=== PATIENT | male | born 1965 | race Caucasian/White ===

== ENCOUNTER 2020-03-30 08:20 | Outpatient (REF) | payer OTHER, SELFPAY ==
[2020-03-30 08:39] LABS: COVID-19 Test Negative (Negative)
== END 2020-03-30 08:21 | disposition home or self-care (01) ==
LOC: HO.LAB 08:20
PROVIDERS: Visit Provider Internal Medicine
DX: Z20.828 Contact with and (suspected) exposure to other viral communicable diseases (principal)
CPT/HCPCS: 87635; C9803

== ENCOUNTER → 2021-08-24 06:35 | Day surgery (SDC) | payer OTHER, SELFPAY ==
[2021-08-20 11:12] VITALS: BMI 40.8
--- NOTE | 2021-08-23 10:18 | HO.ANESPROP2 ---
HPI - Anesthesia Eval Consult details Narrative: 08/24/21 Pt found to be in rapid afib. Transferred to ED 55yo M for Colonoscopy [facility] Active Problems Active Problems: All Active Problems (Updated 08/20/21 @ 11:15 by Nicol Obrien RN) Hypertension (Acute) Desensitization to allergy shot (Acute) Bilateral carpal tunnel syndrome (Acute) Impaired glucose tolerance (Acute) TSH elevation (Acute) Anxiety (Acute) Colon cancer screening (Acute) Generalized anxiety disorder (Acute) Shoulder pain, bilateral (Acute) Trigger finger of all digits of left hand (Acute) Palpitations (Acute) SOB (shortness of breath) on exertion (Acute) Carpal tunnel syndrome on both sides (Acute) Obesity (BMI 30-39.9) (Acute) Hypertriglyceridemia (Acute) Past Medical History Medical History Acute meniscal tear of left knee Allergic rhinitis BPH (benign prostatic hyperplasia) COVID-19 vaccine series completed COVID-19 virus infection Hypertriglyceridemia Insomnia Obesity (BMI 30-39.9) Rosacea Family History Family History Father Diabetes CVA (cerebral vascular accident) Mother Hypertension Brother No problems noted. Brother No problems noted. Sister No problems noted. Sister No problems noted. Daughter No problems noted. Daughter No problems noted. Surgical History Surgical History H/O thumb surgery H/O vasectomy History of facial surgery Hx of knee surgery Social History Social History Household Members: Spouse and Family Housing: House Alcohol intake: current Alcohol intake frequency: does not drink Patient Tobacco Use Status: Never used Tobacco e-Cigarette/Vaping Use: Never Used Second Hand Smoke Exposure: No Advance Directives Date on File: 08/24/21 service: No Current occupational status: employed Meds Allergies Allergy/AdvReac Type Severity Reaction Status Date / Time No Known Allergies Allergy Verified 08/14/21 10:41 Home Medications Medication Instructions Recorded Confirmed Last Taken Type cetirizine 10 mg tablet 10 mg PO DAILY 08/14/21 08/24/21 08/23/21 History fluticasone propionate 50 2 spray INTRANASAL DAILY 08/14/21 08/24/21 08/23/21 History mcg/actuation nasal spray,suspension multivitamin 1 tab PO DAILY 08/24/21 08/24/21 08/23/21 History tamsulosin 0.4 mg capsule 0.4 mg PO DAILY@1730 08/24/21 08/24/21 08/23/21 History Exam Exam Date and Time: August 23, 2021 1018 Height,Weight and Vital Signs: Height 5 ft 8 in Weight 122.016 kg Assessment and Plan Assessment Anesthesia Assessment: Chart Reviewed
[2021-08-24 06:42] VITALS: BP 138/91; PULSE 167; RESP 18; TEMP 35.9; O2SAT 97
--- NOTE | 2021-08-24 06:53 | ECG_ITS ---
Test Reason : tachy Blood Pressure : / mmHG Vent. Rate : 151 BPM Atrial Rate : 000 BPM P-R Int : 000 ms QRS Dur : 092 ms QT Int : 298 ms P-R-T Axes : 000 -34 042 degrees QTc Int : 472 ms Atrial fibrillation with rapid ventricular response Left axis deviation Abnormal ECG When compared with ECG of 02-JUL-2006 14:54, Atrial fibrillation has replaced Sinus rhythm Vent. rate has increased BY 74 BPM Referred By: Haley Jasmine Electronically Signed By:AMANDA KATZ
--- NOTE | 2021-08-24 06:54 | PC.NURSE ---
rapid heart rate 144-164, anesthesia aware, no sx or symptoms, no chest pain or SOB
[2021-08-24] MEDS: Lactated Ringers 1,000 ML 100 ML IVCONT (07:01)
--- NOTE | 2021-08-24 07:21 | PC.NURSE ---
pt being transferred to ed ekg showed rapid afib pt aware of change careplan denies c/p sob dr arreaga aware dr trammell speaking to ed physician
--- NOTE | 2021-08-24 07:45 | PC.NURSE ---
aware of patient being transferred to ed pt remains asymptomatic report to giulia rich
== END ==
PROVIDERS: PCP Internal Medicine; Visit Provider Internal Medicine
DX: Z12.11 Encounter for screening for malignant neoplasm of colon (principal); R94.31 Abnormal electrocardiogram [ECG] [EKG]; I48.91 Unspecified atrial fibrillation; Z53.09 Procedure and treatment not carried out because of other contraindication
CPT/HCPCS: 93005

== ENCOUNTER 2021-08-24 07:35 | Inpatient (IN) | payer OTHER, SELFPAY ==
[2021-08-24] VITALS (9 sets, daily range): BP systolic 98–141; BP diastolic 60–81; PULSE 74–149; RESP 10–20; TEMP 36.1–36.8; O2SAT 95–97; BMI 39.1
--- NOTE | ~2021-08-24 | XR_ITS ---
EXAMINATION: XR CHEST CLINICAL INFORMATION: Atrial fibrillation. Rule out CHF. COMPARISON: Previous chest x-ray July 2009 TECHNIQUE: Frontal view of the chest was obtained. FINDINGS: No significant abnormality is noted involving the heart, lungs, mediastinum, bony thorax or soft tissues. XR/XR chest 1V IMPRESSION: Unremarkable examination.
--- NOTE | 2021-08-24 07:58 | ED.ARRPALP ---
HPI - Arrhythmia/Palpitations General Chief Complaint: Arrhythmia/Palpitations Stated Complaint: A FIB Time Seen by Provider: 08/24/21 07:58 Source: patient Mode of arrival: ambulatory Limitations: no limitations History of Present Illness HPI narrative: patient was going for colonoscopy and found to be in afib, rate of 150. According to anesthesia patient had atrial fibrillation when he had knee surgery [address] on medication. patient is asymptomatic. Duration: constant Severity: moderate Arrhythmia history: atrial fibrillation Associated symptoms: denies other symptoms Related Data Home Medications Medication Instructions Recorded Confirmed cetirizine 10 mg tablet 10 mg PO DAILY 08/14/21 09/11/21 fluticasone propionate 50 2 spray INTRANASAL DAILY 08/14/21 09/11/21 mcg/actuation nasal spray,suspension multivitamin 1 tab PO DAILY 08/24/21 09/11/21 tamsulosin 0.4 mg capsule 0.4 mg PO DAILY@1730 08/24/21 09/11/21 Previous Rx's Medication Instructions Recorded sertraline 50 mg tablet 50 mg PO DAILY #90 tab 08/30/21 apixaban 5 mg tablet (Eliquis) 5 mg PO BID #60 tab 08/31/21 diltiazem HCl 120 mg 120 mg PO DAILY #90 cap 08/31/21 capsule,extended release 24 hr (Cardizem CD) metoprolol succinate 50 mg 75 mg PO DAILY #90 tab 08/31/21 tablet,extended release 24 hr Allergies Allergy/AdvReac Type Severity Reaction Status Date / Time No Known Allergies Allergy Verified 09/11/21 11:26 Review of Systems Constitutional: Constitutional: Reports no additional constitutional complaints Eyes: Eyes: Reports no additional eye complaints ENT: Denies dizziness Cardiovascular: Cardiovascular: Reports no additional cardiovascular complaints Respiratory: Respiratory: Reports as per HPI Gastrointestinal: Gastrointestinal: Reports no additional gastrointestinal complaints Musculoskeletal: Musculoskeletal: Reports no additional musculoskeletal complaints Integumentary/Breasts: Skin/Breast: Denies rash Neurologic: Reports system reviewed and no additional complaints, except as documented, Denies dizziness and Denies Sensory deficit (Neuro) Psychiatric: Psychiatric: Denies anxiety PMFSH Past Medical History Medical History Acute meniscal tear of left knee Allergic rhinitis BPH (benign prostatic hyperplasia) COVID-19 vaccine series completed COVID-19 virus infection Essential hypertension Hypertriglyceridemia Insomnia Obesity (BMI 30-39.9) Rosacea Surgical History H/O thumb surgery H/O vasectomy History of facial surgery Hx of knee surgery Family History Family History Father Diabetes CVA (cerebral vascular accident) Mother Hypertension Brother No problems noted. Brother No problems noted. Sister No problems noted. Sister No problems noted. Daughter No problems noted. Daughter No problems noted. Social History Social History Household Members: Spouse and Family Housing: House Alcohol intake: current Alcohol intake frequency: does not drink Patient Tobacco Use Status: Never used Tobacco e-Cigarette/Vaping Use: Never Used Second Hand Smoke Exposure: No Advance Directives Date on File: 08/24/21 service: No Current occupational status: employed Cognitive needs: No Hearing needs: No Vision needs: No Physical Exam Vital Signs: Vital Signs: Last Vital Signs Temp 97.6 F 08/25/21 11:19 Pulse 82 08/25/21 11:19 Resp 17 08/25/21 11:19 BP 116/68 08/25/21 11:19 Pulse Ox 95 08/25/21 11:19 BMI result Body Mass Index 39.1 Const: General: healthy appearing Nutritional Appearance: obese Orientation/consciousness: oriented to person and patient oriented x3 Limitations: no limitations HEENT: Head: Yes normal to inspection Ears: external ears normal General nose exam: Normal external nose present Mouth: Normal oral and palatal mucosa present and oropharynx normal Throat: Yes posterior oropharynx normal Eyes: General: appearance normal, both eyes and all related structures Neck: Other: supple Neck: Yes normal visual inspection Chest: Chest palpation & inspection: normal inspection of the chest Resp: Auscultation: clear to auscultation bilaterally Cardio: Other: tachycardia, IRRR Jugular venous distension: no JVD GI: Inspection: Yes normal to inspection Palpation (GI): Soft to palpation, nontender and No hepatosplenomegaly present Auscultation: normal bowel sounds : General: Yes no CVA tenderness Back/Spine/Pelvis: Back: no CVA tenderness Skin: General skin exam: no rashes or lesions noted Neuro: General: oriented to person and patient oriented x3 Cranial nerves: Yes CN's II-XII intact bilaterally Motor exam (neuro): 5/5 motor strength present throughout Sensory Exam: No Sensory deficit (Neuro) Extrem: General: Yes normal to inspection Psych: Appearance: grossly normal Course Reevaluation(s) Reevaluation #1: patient on cardizem Heart rate running at 100 will admit Time: 09:11 MDM - Arrhythmia/Palpitations Lab Data Result diagrams: 08/25/21 06:34 08/25/21 06:34 Labs: Lab Results 08/24/21 08/24/21 08/24/21 Range/Units 08:15 08:15 08:15 WBC 7.0 (4.8-10.8) X10*3/uL RBC 5.26 (4.60-5.80) X10*6/uL Hgb 15.9 (14.0-18.0) g/dl Hct 47.5 (42.0-52.0) % MCV 90.3 (80.0-98.0) fL MCH 30.2 (27.0-33.0) pg MCHC 33.5 (31.0-36.0) g/dl RDW 13.2 (11.0-16.0) % Plt Count 234 (160-400) X10*3/uL MPV 11.3 (9.4-12.4) fL Immature Gran % (Auto) 0.3 (0.0-0.4) % Neut % (Auto) 63.5 (45-73) % Lymph % (Auto) 23.7 (20-40) % Robertson % (Auto) 8.2 (2-11) % Eos % (Auto) 3.7 (0-4) % Baso % (Auto) 0.6 (0-2) % Lymph # (Auto) 1.7 (1.2-4.9) X10*3/uL Robertson # (Auto) 0.6 (0.1-1.2) X10*3/uL Eos # (Auto) 0.3 (0.0-0.4) X10*3/uL Baso # (Auto) 0.0 (0.0-0.2) X10*3/uL Abs Immat Gran (auto) 0.02 (0.00-0.03) X10*3/uL Absolute Neuts (auto) 4.4 (2.0-8.3) x10*3/uL Absolute Nucleated RBC 0.000 (0.0-0.012) X10*3/uL Nucleated RBC % (auto) 0.0 (0.0-0.2) /100WBC PT (9.9-13.0) SEC INR (0.9-1.1) APTT (24.1-38.0) SEC Sodium 137 (135-145) mmol/L Potassium 4.2 (3.3-5.1) mmol/L Chloride 106 (96-108) mmol/L Carbon Dioxide 23 (22-29) mmol/L Anion Gap 12 (12-20) BUN 14 (9-16) mg/dL Creatinine 1.02 (0.5-1.4) mg/dL Estim Creat Clear Calc 99.5 Estimated GFR > 60 Random Glucose 128 H (60-115) mg/dL Calcium 8.9 (8.4-10.2) mg/dL Troponin I High Sens < 3.5 (<3.5-35.0) ng/L B-Natriuretic Peptide 80 (<100) pg/mL TSH 5.60 H (0.32-4.0) uIU/mL Free T4 0.84 (0.71-1.85) ng/dL COVID-19 (DEREK) (Negative) COVID-19 Clin Com 08/24/21 08/24/21 Range/Units 08:15 09:24 WBC (4.8-10.8) X10*3/uL RBC (4.60-5.80) X10*6/uL Hgb (14.0-18.0) g/dl Hct (42.0-52.0) % MCV (80.0-98.0) fL MCH (27.0-33.0) pg MCHC (31.0-36.0) g/dl RDW (11.0-16.0) % Plt Count (160-400) X10*3/uL MPV (9.4-12.4) fL Immature Gran % (Auto) (0.0-0.4) % Neut % (Auto) (45-73) % Lymph % (Auto) (20-40) % Robertson % (Auto) (2-11) % Eos % (Auto) (0-4) % Baso % (Auto) (0-2) % Lymph # (Auto) (1.2-4.9) X10*3/uL Robertson # (Auto) (0.1-1.2) X10*3/uL Eos # (Auto) (0.0-0.4) X10*3/uL Baso # (Auto) (0.0-0.2) X10*3/uL Abs Immat Gran (auto) (0.00-0.03) X10*3/uL Absolute Neuts (auto) (2.0-8.3) x10*3/uL Absolute Nucleated RBC (0.0-0.012) X10*3/uL Nucleated RBC % (auto) (0.0-0.2) /100WBC PT 12.0 (9.9-13.0) SEC INR 1.1 (0.9-1.1) APTT 42.7 H (24.1-38.0) SEC Sodium (135-145) mmol/L Potassium (3.3-5.1) mmol/L Chloride (96-108) mmol/L Carbon Dioxide (22-29) mmol/L Anion Gap (12-20) BUN (9-16) mg/dL Creatinine (0.5-1.4) mg/dL Estim Creat Clear Calc Estimated GFR Random Glucose (60-115) mg/dL Calcium (8.4-10.2) mg/dL Troponin I High Sens (<3.5-35.0) ng/L B-Natriuretic Peptide (<100) pg/mL TSH (0.32-4.0) uIU/mL Free T4 (0.71-1.85) ng/dL COVID-19 (DEREK) Negative (Negative) COVID-19 Clin Com See Note ECG Data Attestation: I personally reviewed and interpreted this ECG as follows: Interpretation: atrial fibrillation, rate of 130, no st or twave changes Critical Care Time Critical Care Time Attestation: I spent 40 minutes of critical care, with interventions, assessments, speaking to patient, consultants, and family. Discharge Plan Discharge Clinical Impression: Atrial fibrillation Patient Disposition: Admitted As Inpatient Interventions: Admission Worksheet (ED) Last Done: 08/24/21 13:27 Discharge Date/Time: 08/24/21 13:28
--- NOTE | 2021-08-24 08:03 | ECG_ITS ---
Test Reason : tachy Blood Pressure : / mmHG Vent. Rate : 132 BPM Atrial Rate : 132 BPM P-R Int : 158 ms QRS Dur : 092 ms QT Int : 310 ms P-R-T Axes : 045 -31 034 degrees QTc Int : 459 ms Sinus tachycardia with Premature supraventricular complexes Left axis deviation Abnormal ECG When compared with ECG of 24-AUG-2021 07:02, No significant changes seen Referred By: Adolfo Donahue Electronically Signed By:AMANDA KATZ
[2021-08-24] MEDS: dilTIAZem HCL 50 MG/10 ML VIAL 10 MG IVPUSH (08:16)
[2021-08-24] MEDS: dilTIAZem HCL 125 MG in 0.9 % Sodium Chloride 100 ML 10 MG IVCONT (08:20)
[2021-08-24 08:21] LABS: MANUAL DIFF FLAG NO
[2021-08-24 08:26] LABS: Basophils Percent Auto 0.6 % (0-2); Eosinophils Absolute Auto 0.3 X10*3/uL (0.0-0.4); Eosinophils Percent Auto 3.7 % (0-4); Hematocrit 47.5 % (42.0-52.0); Hemoglobin 15.9 g/dl (14.0-18.0); Imm Gran Abs Auto 0.02 X10*3/uL (0.00-0.03); Imm Gran Pct Auto 0.3 % (0.0-0.4); Lymphocytes Absolute Auto 1.7 X10*3/uL (1.2-4.9); Lymphocytes Percent Auto 23.7 % (20-40); Mean Corpuscular HGB Conc 33.5 g/dl (31.0-36.0); Mean Corpuscular Hemoglobin 30.2 pg (27.0-33.0); Mean Corpuscular Volume 90.3 fL (80.0-98.0); Mean Platelet Volume 11.3 fL (9.4-12.4); Monocytes Absolute Auto 0.6 X10*3/uL (0.1-1.2); Monocytes Percent Auto 8.2 % (2-11); Neutrophils Absolute Auto 4.4 x10*3/uL (2.0-8.3); Neutrophils Percent Auto 63.5 % (45-73); Platelet Count 234 X10*3/uL (160-400); Red Blood Count 5.26 X10*6/uL (4.60-5.80); Red Cell Distribution Width 13.2 % (11.0-16.0)
[2021-08-24 08:29] LABS: INTERNATIONAL NORM RATIO 1.1 (0.9-1.1)
[2021-08-24 08:31] LABS: Partial Thromboplastin Time 42.7 SEC (24.1-38.0)
[2021-08-24] MEDS: Enoxaparin Sodium 120 MG/0.8 ML SYRINGE 115 MG SUBCUT (08:36)
[2021-08-24 08:37] LABS: Anion Gap 12 (12-20); Blood Urea Nitrogen 14 mg/dL (9-16); Calcium 8.9 mg/dL (8.4-10.2); Carbon Dioxide 23 mmol/L (22-29); Chloride 106 mmol/L (96-108); Creatinine Clr Calc Pharmacy 99.5; Estimated Glomerular Filt Rate > 60; Glucose Random 128 mg/dL (60-115); Potassium 4.2 mmol/L (3.3-5.1); Sodium 137 mmol/L (135-145)
[2021-08-24 08:43] LABS: Troponin-I High Sensitivity < 3.5 ng/L (<3.5-35.0)
--- NOTE | 2021-08-24 09:41 | PHA.MEDREC ---
me rec complete, no issues Pharmacy Consult ? Medication Reconciliation Pharmacy has completed the medication reconciliation.
[2021-08-24 09:51] LABS: COVID-19 Test Negative (Negative); IDNOW Serial# 16C4AD1C
--- NOTE | 2021-08-24 10:00 | CA_ITS ---
Transthoracic Echocardiogram Patient (Last, First, Middle): Rich Carias F Gender: Male Date of : 1965 Age: 55 Procedure Date: 08/24/2021 Procedure Type: Transthoracic Echocardiogram Location: ER Height: 170.18 cm Weight: 113.4 kg BSA: 2.22 m2 Heart Rate: bpm BP: 102 / 71 mmHg Mud Worker: DEYSI Referring MD: Spencer Key MD Symptoms: a. fib rvr Study Quality: Fair ECG Rhythm: Atrial Fibrillation Conclusions: - The left ventricular systolic function is normal. The visually estimated ejection fraction is between 55-60%. - No obvious valvular pathology seen on this study. Findings Left Ventricle Normal left ventricular cavity size. There is mildly increased left ventricular wall thickness. The left ventricular systolic function is normal. The visually estimated ejection fraction is between 55-60%. There is no evidence of regional wall motion abnormalities. Diastolic function is indeterminate on the basis of available data. Right Ventricle Normal right ventricular cavity size and systolic function. Atria Both atria are normal in size. Aortic Valve There is a normal trileaflet aortic valve. There is no aortic valve stenosis. There is no aortic valve regurgitation. Mitral Valve The mitral valve appears normal. There is trace mitral valve regurgitation. There is no mitral valve stenosis. Pulmonic Valve The pulmonic valve is likely normal. Tricuspid Valve There is trace tricuspid valve regurgitation. The pulmonary artery systolic pressure is normal. Great Vessels The sinuses of valsalva, sino tubular ridge, and asc aorta are normal in size. Venous The inferior vena cava is normal in size and collapses greater than 50% with inspiration. Pericardium/Pleural There is a trivial pericardial effusion. Prior Study Comparison No prior study available for comparison. Recommendations, Care & Conclusions No obvious valvular pathology seen on this study. Measurements 2D Linear Measurements IVSd: 1.28 0.6-0.9/0.6-1.0 cm LVIDd: 4.17 3.9-5.3/4.2-5.9 cm LVIDd Index: 1.88 2.4-3.2/2.2-3.1 cm/m2 LVIDs: 2.90 2.0-3.6 cm LVPWd: 1.23 0.7-1.1 cm LA Diam: 3.50 2.7-3.8/3.0-4.0 cm LAIDs Index: 1.58 1.5-2.3 cm/m2 LV Mass: 234.59 67-162/88-224 g LV Mass Index: 105.67 43-95/49-115 g/m2 LVOT Diam: 2.00 3.0+(-)1.3 cm 2D Systolic Function EF 4C: 58.00 >55% EF 2C: 42.70 >55% EF BiP: 46.90 >55% Aortic Valve AoV Pk Malcom: 1.43 AoV Mn Malcom: 1.04 AoV VTI: 0.25 AoV Pk Grad: 8.00 Aov Mn Grad: 5.00 DEDRICK Cont.VTI: 1.89 LVOT LVOT Pk Malcom: 0.94 LVOT Mn Malcom: 0.60 LVOT VTI: 0.15 LVOT Pk Grad: 4.00 LVOT Mn Grad: 2.00 LVOT Diam: 2.00 LVOT Area: 3.14 Right Ventricle TAPSE (mm): 18.40 Tricuspid Valve TR Pk Malcom: 1.56 TR Pk Grad: 10.00 RA Press: 3.00 RVSP: 13.00 Great Vessels Aorta Sinus of Valsalva: 2.00 2.0-3.[address] Ridge: 3.04 1.7-3.4 cm Ao Asc: 3.20 2.1-3.4 cm Updated in Other Vendor System with Status of Final Mynor Murray MD electronically signed on 08/24/2021 3:22:29 PM with status of Final
--- NOTE | 2021-08-24 10:30 | PM.IMHP ---
History of Present Illness Date of Service: 08/24/21 Chief Complaint: A. 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 He presented today to short stay surgery for a scheduled screening colonoscopy where he was found to be in rapid a. fib with rates higher than 150. He was subsequently transferred to the ED for further evaluation. The patient himself denies any chest pain, sob, palpitations currently. Denies any dizziness or lightheadedness. Upon further questioning, he does endorse that he has felt palpitation and shortness of breath when exerting himself more recently, but this improves after resting. In regards to his A. Fib history -- he reports that he had a brief episode of this during his knee replacement about 2 years ago. He reports they proceeded with the surgery at that time and he has not had any issues with the a. fib since. In the ED, the patient was noted to be in A. Fib with rates 120-150s. An IV cardizem push was given without much change to his HR and he has been placed on a cardizem drip and admission is requested. He is also given a treatment dose of lovenox x 1. COVID vaccination status: 3 doses of Moderna Review of Systems Review of Systems: negative except HPI [facility] Medical History Acute meniscal tear of left knee Allergic rhinitis BPH (benign prostatic hyperplasia) COVID-19 vaccine series completed COVID-19 virus infection Hypertriglyceridemia Insomnia Obesity (BMI 30-39.9) Rosacea Family History Father Diabetes CVA (cerebral vascular accident) Mother Hypertension Brother No problems noted. Brother No problems noted. Sister No problems noted. Sister No problems noted. Daughter No problems noted. Daughter No problems noted. Surgical History H/O thumb surgery H/O vasectomy History of facial surgery Hx of knee surgery Social History Housing: House Alcohol intake: current Alcohol intake frequency: does not drink Patient Tobacco Use Status: Never used Tobacco e-Cigarette/Vaping Use: Never Used Second Hand Smoke Exposure: No Use of substances other than those prescribed or required for medical reasons: No Advance Directives: Yes Advance Directives Information Provided: Yes Advance Directives on File: No service: No Current occupational status: employed Meds Allergies Allergy/AdvReac Type Severity Reaction Status Date / Time No Known Allergies Allergy Verified 08/14/21 10:41 Active Medications: Current Medications Acetaminophen (Acetaminophen 325 Mg Tablet) 650 mg PO Q6H PRN PRN Reason: Pain, Mild (Pain Scale 1-3) Diltiazem HCl 125 mg/ Sodium (Chloride) 125 mls @ 0 mls/hr IVCONT .Q0M [facility]; Protocol Last Admin: 08/24/21 08:20 Dose: 10 mg/hr, 10 mls/hr Documented by: Ondansetron HCl (Ondansetron Hcl 4 Mg/2 Ml Vial) 4 mg IVPUSH Q8H PRN PRN Reason: Nausea and Vomiting Pharmacy Consult (Consult Rx Perform Med Rec) 1 each MISCELLANE ONCE PRN PRN Reason: Consult order Sodium Chloride (0.9 % Sodium Chloride Flush 3 Ml Syringe) [facility] Medications Medication Instructions Recorded Confirmed Last Taken Type cetirizine 10 mg tablet 10 mg PO DAILY 08/14/21 08/24/21 08/23/21 History fluticasone propionate 50 2 spray INTRANASAL DAILY 08/14/21 08/24/21 08/23/21 History mcg/actuation nasal spray,suspension multivitamin 1 tab PO DAILY 08/24/21 08/24/21 08/23/21 History tamsulosin 0.4 mg capsule 0.4 mg PO DAILY@1730 08/24/21 08/24/21 08/23/21 History Physical Exam Vital Signs and Narrative: Vital Signs: Last Vital Signs Temp 98.2 F 08/24/21 07:56 Pulse 85 08/24/21 09:29 Resp 16 08/24/21 09:29 BP 98/60 08/24/21 09:29 Pulse Ox 96 08/24/21 09:29 BMI result Body Mass Index 39.1 Const: Other: Constitutional - Awake and Alert, No apparent distress Eyes - PERRLA, EOMI Cardiovascular - IRR, rates 100s at rest on cardizem gtt, but increases to 140s/150s with minimal exertion; no JVD/LE Edema appreciated Respiratory - Normal lung expansion, Normal respiratory effort, No respiratory distress, CTA bilaterally Gastrointestinal - NT / ND; +BS; No rebound or guarding - No CVA tenderness Extremities - no calf tenderness bilaterally, no swelling Musculoskeletal - Normal inspection, normal ROM Skin - Warm/Dry Neurological - Alert & oriented x3, No focal deficit Psychological - Appropriate affect Results Labs CBC and Chem 7: 08/24/21 08:15 08/24/21 08:15 Labs: Laboratory Results - last 24 hr 08/24/21 08/24/21 08/24/21 08:15 08:15 08:15 MCV 90.3 MCH 30.2 MCHC 33.5 RDW 13.2 Plt Count 234 MPV 11.3 Immature Gran % (Auto) 0.3 Neut % (Auto) 63.5 Lymph % (Auto) 23.7 Sandoval % (Auto) 8.2 Eos % (Auto) 3.7 Baso % (Auto) 0.6 Lymph # (Auto) 1.7 Sandoval # (Auto) 0.6 Eos # (Auto) 0.3 Baso # (Auto) 0.0 Abs Immat Gran (auto) 0.02 Absolute Neuts (auto) 4.4 Absolute Nucleated RBC 0.000 Nucleated RBC % (auto) 0.0 PT INR APTT Anion Gap 12 Estim Creat Clear Calc 99.5 Estimated GFR > 60 Random Glucose 128 H Calcium 8.9 Troponin I High Sens < 3.5 COVID-19 ([facility]) COVID-19 Clin Com 08/24/21 08/24/21 08:15 09:24 MCV MCH MCHC RDW Plt Count MPV Immature Gran % (Auto) Neut % (Auto) Lymph % (Auto) Sandoval % (Auto) Eos % (Auto) Baso % (Auto) Lymph # (Auto) Sandoval # (Auto) Eos # (Auto) Baso # (Auto) Abs Immat Gran (auto) Absolute Neuts (auto) Absolute Nucleated RBC Nucleated RBC % (auto) PT 12.0 INR 1.1 APTT 42.7 H Anion Gap Estim Creat Clear Calc Estimated GFR Random Glucose Calcium Troponin I High Sens COVID-19 (DEREK) Negative COVID-19 Clin Com See Note Assessment and Plan (1) Atrial fibrillation with RVR: Status: Acute Plan This is a 55 yo M with a PMH of HTN, Obesity, Allergic Rhinits who has a previous, short-lived episode of A. fib about 2 years ago, who presented to the hospital today for a scheduled screening colonoscopy where he was found to be in rapid a. fib. He has not responded to IV push cardizem and has been placed on cardizem drip. He will be admitted for further work up and treatment. 1. A. Fib with RVR Continue cardizem drip --- his BP is on the down-trend after start cardizem drip. May need to use alternative if his BP becomes too low. Given a dose of Lovenox 1mg/kg in the ED. His CHADSVASC score is a 1 (for HTN). Will await cardiology input re: OAC Check 2d Echo and consult cardiology Clinically does not appear to be in CHF; will check a CXR and BNP Check TSH 2. HTN hold his home metoprolol dose -- cardizem as above 3. Obseity weight loss/diet 4. Mood sertraline 5. BPH flomax Full Code DVT pptx In light of the patients A. Fib with RVR requiring cardizem drip which will require further work up including cardiology consultation, I anticipate a medically necessary inpatient admission spanning at least 2 midnights. He will need treatment and monitoring for this. This cannot be completed in a less acute setting. Quality Stroke Does the patient have a stroke diagnosis?: No VTE Prior VTE?: No VTE Risk Level:: Medical - moderate - high VTE Device Contraindication: Treatment Not Indicated VTE Drug Contraindication: N/A - Med Ordered
[2021-08-24 11:08] LABS: B Type Natriuretic Peptide 80 pg/mL (<100)
[2021-08-24 11:57] LABS: Free T4 (Free Thyroxine) 0.84 ng/dL (0.71-1.85)
[2021-08-24] MEDS: 0.9 % Sodium Chloride Flush 3 ML SYRINGE IVFLUSH ×2 (17:24→19:19)
[2021-08-24] MEDS: Metoprolol Tartrate 25 MG TABLET PO (17:24)
[2021-08-24] MEDS: Tamsulosin HCL 0.4 MG CAPSULE PO (17:24)
[2021-08-25] MEDS: Metoprolol Tartrate 25 MG TABLET PO ×2 (00:27→08:07)
[2021-08-25 03:11] VITALS: BP 123/58; PULSE 67; RESP 16; TEMP 36.6; O2SAT 99
[2021-08-25 07:01] LABS: INTERNATIONAL NORM RATIO 1.1 (0.9-1.1)
[2021-08-25 07:03] LABS: Anion Gap 11 (12-20); Blood Urea Nitrogen 17 mg/dL (9-16); Carbon Dioxide 26 mmol/L (22-29); Chloride 106 mmol/L (96-108); Creatinine Clr Calc Pharmacy 91.4; Estimated Glomerular Filt Rate > 60; Glucose Random 112 mg/dL (60-115); Potassium 4.2 mmol/L (3.3-5.1); Sodium 139 mmol/L (135-145)
[2021-08-25 07:10] LABS: Hematocrit 45.2 % (42.0-52.0); Mean Corpuscular HGB Conc 33.2 g/dl (31.0-36.0); Mean Corpuscular Hemoglobin 30.3 pg (27.0-33.0); Mean Corpuscular Volume 91.3 fL (80.0-98.0); Mean Platelet Volume 11.2 fL (9.4-12.4); Platelet Count 207 X10*3/uL (160-400); Red Blood Count 4.95 X10*6/uL (4.60-5.80); Red Cell Distribution Width 13.2 % (11.0-16.0); White Blood Count 7.3 X10*3/uL (4.8-10.8)
[2021-08-25 08:00] VITALS: BP 136/81; PULSE 82; RESP 18; TEMP 36.3; O2SAT 98
[2021-08-25] MEDS: Multivitamin TABLET 1 TAB PO (08:06)
[2021-08-25] MEDS: Sertraline HCL 50 MG TABLET PO (08:06)
[2021-08-25] MEDS: 0.9 % Sodium Chloride Flush 3 ML SYRINGE IVFLUSH (08:07)
[2021-08-25] MEDS: Loratadine 10 MG TABLET PO (08:07)
--- NOTE | 2021-08-25 10:37 | MHC.CM.PN ---
PT REPORTS HE LIVES AT HOME WITH HIS AND IS INDEPENDENT WITH CARE PT DENIES USING DME OR SERVICES PT CONFIRMS HIS PCP IS SHELBY LAZCANO PT DECLINES TO COMPLETE A HCP PT REPORTS HE IS COVDI-19 VACCINATED DCP, HOME NO SERVICES PT TO ARRANGE TRANSPORT
--- NOTE | 2021-08-25 10:48 | PM.CNCAR ---
History of Present Illness History of Present Illness Date of Service: 08/25/21 Chief complaint: A FIB with RVR Narrative: This is a cardiology consultation regarding atrial fibrillation. He basically came for a colonoscopy and that context was found to have atrial fibrillation with rapid rate. Then he was sent to the ER for evaluation he was admitted. He states that a few days ago, he was trying to climb stairs with some weight in his hands and was feeling short of breath. Otherwise he really does not feel any symptoms at all like angina or palpitations or in fact any cardiac symptoms whatsoever. No known coronary disease myocardial infarction or cardiomyopathy. No history of any atrial fibrillation or other arrhythmias in the past. Today states that he is feeling fine. He has history of hypertension for which she takes Toprol-XL at home. He is obese but not known to have any sleep apnea. He states he does snore however. Review of Systems Review of Systems: Yes all other systems are reviewed and are negative Constitutional: Constitutional: Reports as per HPI Eyes: Eyes: Reports as per HPI ENT: Reports as per HPI Cardiovascular: Cardiovascular: Reports as per HPI, Denies acrocyanosis, Denies cool extremities, Denies chest pain, Denies leg edema, Denies lightheadedness, Denies palpitations and Denies dyspnea Respiratory: Respiratory: Reports as per HPI, Reports no additional respiratory complaints and Denies dyspnea Gastrointestinal: Gastrointestinal: Reports as per HPI and Reports no additional gastrointestinal complaints Genitourinary: Genitourinary: Reports no additional male genitourinary complaints and Reports as per HPI Musculoskeletal: Musculoskeletal: Reports no additional musculoskeletal complaints and Reports as per HPI Integumentary/Breasts: Skin/Breast: Reports system reviewed and no additional complaints, except as docu Neurologic: Reports system reviewed and no additional complaints, except as documented and Reports as per HPI Psychiatric: Psychiatric: Reports no additional psychiatric complaints and Reports as per HPI Endocrine: Endocrine: Reports no additional endocrine complaints, Reports as per HPI and Denies palpitations Hematologic/Lymphatic: Hematologic/Lymphatic: Reports no additional hematologic/lymphatic complaints and Reports as per HPI Allergic/Immunologic: Allergic/Immunologic: Reports no additional allergic/immunologic complaints and Reports as per HPI [facility] Past Medical History Medical History Acute meniscal tear of left knee Allergic rhinitis BPH (benign prostatic hyperplasia) COVID-19 vaccine series completed COVID-19 virus infection Hypertriglyceridemia Insomnia Obesity (BMI 30-39.9) Rosacea Family History Family History Father Diabetes CVA (cerebral vascular accident) Mother Hypertension Brother No problems noted. Brother No problems noted. Sister No problems noted. Sister No problems noted. Daughter No problems noted. Daughter No problems noted. Surgical History Surgical History H/O thumb surgery H/O vasectomy History of facial surgery Hx of knee surgery Social History Social History Household Members: Spouse and Family Housing: House Alcohol intake: current Alcohol intake frequency: does not drink Patient Tobacco Use Status: Never used Tobacco e-Cigarette/Vaping Use: Never Used Second Hand Smoke Exposure: No Advance Directives Date on File: 08/24/21 service: No Current occupational status: employed Meds Allergies Allergy/AdvReac Type Severity Reaction Status Date / Time No Known Allergies Allergy Verified 08/14/21 10:41 Active Medications: Current Medications Acetaminophen (Acetaminophen 325 Mg Tablet) 650 mg PO Q6H PRN PRN Reason: Pain, Mild (Pain Scale 1-3) Diltiazem HCl 125 mg/ Sodium (Chloride) 125 mls @ 0 mls/hr IVCONT .Q0M [facility]; Protocol Last Titration: 08/24/21 16:12 Dose: 0 mg/hr, 0 mls/hr Documented by: Loratadine (Loratadine 10 Mg Tablet) 10 mg PO DAILY [facility] Last Admin: 08/25/21 08:07 Dose: 10 mg Documented by: Metoprolol Tartrate (Metoprolol Tartrate 25 Mg Tablet) 25 mg PO Q8H KWAKU; Protocol Last Admin: 08/25/21 08:07 Dose: 25 mg Documented by: Multivitamins/Vitamin C (Multivitamin Tablet) 1 tab PO DAILY [facility] Last Admin: 08/25/21 08:06 Dose: 1 tab Documented by: Ondansetron HCl (Ondansetron Hcl 4 Mg/2 Ml Vial) 4 mg IVPUSH Q8H PRN PRN Reason: Nausea and Vomiting Pharmacy Consult (Consult Rx Perform Med Rec) 1 each MISCELLANE ONCE PRN PRN Reason: Consult order Sertraline HCl (Sertraline Hcl 50 Mg Tablet) 50 mg PO DAILY [facility] Last Admin: 08/25/21 08:06 Dose: 50 mg Documented by: Sodium Chloride (0.9 % Sodium Chloride Flush 3 Ml Syringe) 3 ml IVFLUSH QSHIFT [facility] Last Admin: 08/25/21 08:07 Dose: 3 ml Documented by: Tamsulosin HCl (Tamsulosin Hcl 0.4 Mg Capsule) 0.4 mg PO DAILY@1730 [facility] Last Admin: 08/24/21 17:24 Dose: 0.4 mg Documented by: Home Medications Medication Instructions Recorded Confirmed Last Taken Type cetirizine 10 mg tablet 10 mg PO DAILY 08/14/21 08/24/21 08/23/21 History fluticasone propionate 50 2 spray INTRANASAL DAILY 08/14/21 08/24/21 08/23/21 History mcg/actuation nasal spray,suspension multivitamin 1 tab PO DAILY 08/24/21 08/24/21 08/23/21 History tamsulosin 0.4 mg capsule 0.4 mg PO DAILY@1730 08/24/21 08/24/21 08/23/21 History Physical Exam Vital Signs: Vital Signs: Last Vital Signs Temp 97.4 F 08/25/21 08:00 Pulse 82 08/25/21 08:00 Resp 18 08/25/21 08:00 BP 136/81 08/25/21 08:00 Pulse Ox 98 08/25/21 08:00 BMI result Body Mass Index 39.1 Const: General: comfortable HEENT: Other: Unremarkable Head: Yes normal to inspection Neck: Neck: Yes normal visual inspection Chest: Chest palpation & inspection: normal inspection of the chest Resp: Auscultation: clear to auscultation bilaterally Cardio: Palpation: normal PMI Heart sounds: S1 normal heart sound present, S2 normal heart sound present, no gallops, no murmurs and no rubs GI: Palpation (GI): Soft to palpation Back/Spine/Pelvis: Other: unremarkable Skin: General skin exam: no rashes or lesions noted Neuro: Cognition (Neuro): normal cognition Extrem: General: Yes normal to inspection Psych: Mental Status: mental status grossly normal Objective Labs and Meds Result diagrams: 08/25/21 06:34 08/25/21 06:34 Lab results: Laboratory Results - last 24 hr 08/24/21 08/24/21 08/25/21 08:15 08:15 06:34 WBC RBC Hgb Hct MCV MCH MCHC RDW Plt Count MPV Absolute Nucleated RBC Nucleated RBC % (auto) PT 12.0 INR 1.1 Sodium Potassium Chloride Carbon Dioxide Anion Gap BUN Creatinine Estim Creat Clear Calc Estimated GFR Random Glucose Calcium B-Natriuretic Peptide 80 TSH 5.60 H Free T4 0.84 08/25/21 08/25/21 06:34 06:34 WBC 7.3 RBC 4.95 Hgb 15.0 Hct 45.2 MCV 91.3 MCH 30.3 MCHC 33.2 RDW 13.2 Plt Count 207 MPV 11.2 Absolute Nucleated RBC 0.000 Nucleated RBC % (auto) 0.0 PT INR Sodium 139 Potassium 4.2 Chloride 106 Carbon Dioxide 26 Anion Gap 11 L BUN 17 H Creatinine 1.11 Estim Creat Clear Calc 91.4 Estimated GFR > 60 Random Glucose 112 Calcium 9.0 B-Natriuretic Peptide TSH Free T4 ECG Interpretation: EKG with atrial fibrillation at 132/Min. Leftward axis. Imaging Radiologist's impression: Impressions Chest X-Ray 08/24/21 10:00 IMPRESSION: Unremarkable examination. Assessment and Plan (1) Atrial fibrillation with RVR: Status: Acute (2) Obesity (BMI 30-39.9): Status: Acute (3) Essential hypertension: Status: Acute Plan Echocardiogram with normal LVEF, 55-60% and otherwise unremarkable. On telemetry, he still in atrial fibrillation with rapid rate somewhere in the 110s to 120s. Sometimes he goes higher. Labs seem fairly unremarkable. High sensitivity troponins are normal. Cardiac BNP is also within range at 80. It seems he was on a Cardizem drip but not anymore. We can start on oral Cardizem. Otherwise, on metoprolol 25 mg every 8 hours. Also start Eliquis 5 mg b.i.d.. As he has no symptoms whatsoever, we can plan on elective cardioversion about 4 weeks time after appropriate anticoagulation. Hopefully with above medications, is rate controlled. Otherwise, main focus should be management of obesity and weight loss. Discussed about this with the patient in detail. He also needs outpatient evaluation for sleep apnea with a home sleep study. We discussed about this as well. Discussed with hospitalist about plan. Yadira Kirk. Procedures Date of Service Date of Service: 08/25/21
--- NOTE | 2021-08-25 11:01 | P.PNIM_ITS ---
Subjective Subjective Date of Service: 08/25/21 Review of Systems Follow up afib rvr no chest pain or sense of palpitations eating well, ambulating in room Physical Exam Vital Signs: Vital Signs: Last Vital Signs Temp 97.4 F 08/25/21 08:00 Pulse 82 08/25/21 08:00 Resp 18 08/25/21 08:00 BP 136/81 08/25/21 08:00 Pulse Ox 98 08/25/21 08:00 BMI result Body Mass Index 39.1 Appearing in no acute distress lung sounds are clear to auscultation heart IRIR positive bowel sounds, abdomen is soft, nontender neuro patient is alert x3, no focal deficits Objective Data Active Medications Acetaminophen (Acetaminophen 325 Mg Tablet) 650 mg PO Q6H PRN PRN Reason: Pain, Mild (Pain Scale 1-3) Apixaban (Apixaban 5 Mg Tablet) 5 mg PO BID [facility] Diltiazem HCl (Diltiazem Hcl Cd 120 Mg Cap.Er.Deg) 120 mg PO DAILY [facility]; Protocol Diltiazem HCl 125 mg/ Sodium (Chloride) 125 mls @ 0 mls/hr IVCONT .Q0M [facility]; Protocol Last Titration: 08/24/21 16:12 Dose: 0 mg/hr, 0 mls/hr Documented by: KATIE Loratadine (Loratadine 10 Mg Tablet) 10 mg PO DAILY [facility] Last Admin: 08/25/21 08:07 Dose: 10 mg Documented by: MULUGETA Metoprolol Tartrate (Metoprolol Tartrate 25 Mg Tablet) 25 mg PO Q8H [facility]; Protocol Last Admin: 08/25/21 08:07 Dose: 25 mg Documented by: MULUGETA Multivitamins/Vitamin C (Multivitamin Tablet) 1 tab PO DAILY [facility] Last Admin: 08/25/21 08:06 Dose: 1 tab Documented by: MULUGETA Ondansetron HCl (Ondansetron Hcl 4 Mg/2 Ml Vial) 4 mg IVPUSH Q8H PRN PRN Reason: Nausea and Vomiting Pharmacy Consult (Consult Rx Perform Med Rec) 1 each MISCELLANE ONCE PRN PRN Reason: Consult order Sertraline HCl (Sertraline Hcl 50 Mg Tablet) 50 mg PO DAILY [facility] Last Admin: 08/25/21 08:06 Dose: 50 mg Documented by: MULUGETA Sodium Chloride (0.9 % Sodium Chloride Flush 3 Ml Syringe) 3 ml IVFLUSH QSHIFT [facility] Last Admin: 08/25/21 08:07 Dose: 3 ml Documented by: MULUGETA Tamsulosin HCl (Tamsulosin Hcl 0.4 Mg Capsule) 0.4 mg PO DAILY@1730 [facility] Last Admin: 08/24/21 17:24 Dose: 0.4 mg Documented by: URSULA Labs CBC & Chem 7: 08/25/21 06:34 08/25/21 06:34 Labs: Laboratory Results - last 24 hr 08/24/21 08/24/21 08/25/21 08:15 08:15 06:34 MCV MCH MCHC RDW Plt Count MPV Absolute Nucleated RBC Nucleated RBC % (auto) PT 12.0 INR 1.1 Anion Gap Estim Creat Clear Calc Estimated GFR Random Glucose Calcium B-Natriuretic Peptide 80 TSH 5.60 H Free T4 0.84 08/25/21 08/25/21 06:34 06:34 MCV 91.3 MCH 30.3 MCHC 33.2 RDW 13.2 Plt Count 207 MPV 11.2 Absolute Nucleated RBC 0.000 Nucleated RBC % (auto) 0.0 PT INR Anion Gap 11 L Estim Creat Clear Calc 91.4 Estimated GFR > 60 Random Glucose 112 Calcium 9.0 B-Natriuretic Peptide TSH Free T4 Assessment and Plan (1) Atrial fibrillation with RVR: Status: Acute Plan This is a 55 yo M with a PMH of HTN, Obesity, Allergic Rhinits who has a previous, short-lived episode of A. fib about 2 years ago, who presented to the hospital today for a scheduled screening colonoscopy where he was found to be in rapid a. fib. He has not responded to IV push cardizem and has been placed on cardizem drip. He will be admitted for further work up and treatment. Acute A. Fib with RVR. New onset Cardizem drip stopped start Eliquis 5mg BID, diltiazem 120mg daily [id number] 1 Echo EF 55-60% TSH 5.60, Free t4 0.84 cardiology following HTN Metoprolol Obesity. BMI 39.2 weight loss/diet Mood sertraline BPH flomax Full Code DVT pptx with debbyquis Attending Requires continued hospitalization for treatment of acute afib rvr and can not be dc until heart rate under better control Quality Stroke Does the patient have a stroke diagnosis?: No VTE Prior VTE?: No VTE Risk Level:: Medical - moderate - high VTE Device Contraindication: Treatment Not Indicated VTE Drug Contraindication: N/A - Med Ordered
[2021-08-25 11:19] VITALS: BP 116/68; PULSE 82; RESP 17; TEMP 36.4; O2SAT 95
[2021-08-25] MEDS: dilTIAZem HCL CD 120 MG CAP.ER.DEG PO (11:22)
[2021-08-25] MEDS: Apixaban 5 MG TABLET PO (11:22)
--- NOTE | 2021-08-25 15:31 | PM.DS ---
DS: Providers Provider Date of Service: 08/25/21 Date of admission: 08/24/21 09:47 Primary care physician: Es Cuenca MD Consults: 08/24/21 09:48 Consult to Cardiology Routine Consulting Provider: Mynor Murray Reason for consultation: a. 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 He presented today to short stay surgery for a scheduled screening colonoscopy where he was found to be in rapid a. fib with rates higher than 150. He was subsequently transferred to the ED for further evaluation. The patient himself denies any chest pain, sob, palpitations currently. Denies any dizziness or lightheadedness. Upon further questioning, he does endorse that he has felt palpitation and shortness of breath when exerting himself more recently, but this improves after resting. In regards to his A. Fib history -- he reports that he had a brief episode of this during his knee replacement about 2 years ago. He reports they proceeded with the surgery at that time and he has not had any issues with the a. fib since. In the ED, the patient was noted to be in A. Fib with rates 120-150s. An IV cardizem push was given without much change to his HR and he has been placed on a cardizem drip and admission is requested. He is also given a treatment dose of lovenox x 1 .COVID vaccination status: 3 doses of Moderna Acute A. Fib with RVR. New onset Cardizem drip stopped, oral diltiazem started and metoprolol increased to 75 mg daily started Eliquis 5mg BID [id number] 1 Echo EF 55-60% TSH 5.60, Free t4 0.84 outpatient cardioversion, follow-up with Cardiology HTN Metoprolol Obesity. BMI 39.2 weight loss/diet Mood sertraline BPH flomax Time Spent with Patient Time attestation: Total time spent providing and/or coordinating discharge services: Discharge coordination time: Greater than 30 minutes Quality: Safe Use of Opioids Does Pt have an Active Cancer Diagnosis on the Problem List?: No Quality: Stroke Does the patient have a stroke diagnosis?: No Physical Exam Vital Signs: Vital Signs: Last Vital Signs Temp 97.6 F 08/25/21 11:19 Pulse 82 08/25/21 11:19 Resp 17 08/25/21 11:19 BP 116/68 08/25/21 11:19 Pulse Ox 95 08/25/21 11:19 BMI result Body Mass Index 39.1 Appearing in no acute distress head is normocephalic atraumatic eyes pupils are PERRLA sclera is anicteric mouth throat mucous membranes are intact and moist neck is supple no lymphadenopathy, no JVD noted lung sounds are clear to auscultation heart regular rate rhythm, clear S1, S2 positive bowel sounds, abdomen is soft, nontender neuro patient is alert x3, no focal deficits DS: Data Data Completed and Pending Labs on day of discharge: Laboratory Results - last 24 hr 08/25/21 08/25/21 08/25/21 06:34 06:34 06:34 WBC 7.3 RBC 4.95 Hgb 15.0 Hct 45.2 MCV 91.3 MCH 30.3 MCHC 33.2 RDW 13.2 Plt Count 207 MPV 11.2 Absolute Nucleated RBC 0.000 Nucleated RBC % (auto) 0.0 PT 12.0 INR 1.1 Sodium 139 Potassium 4.2 Chloride 106 Carbon Dioxide 26 Anion Gap 11 L BUN 17 H Creatinine 1.11 Estim Creat Clear Calc 91.4 Estimated GFR > 60 Random Glucose 112 Calcium 9.0 Discharge Plan Discharge Anticipated Discharge Date/Time: 08/25/21 15:21 Patient Disposition: Home, Self-Care Discharge Diagnosis: Afib RVR Referrals: Es Cuenca MD [Primary Care Provider] - 1 Week Mynor Murray MD [Physician] - 1 Week Discharge Medications: New diltiazem HCl [Cardizem CD] 120 mg Capsule,Extended Release 24hr 120 mg PO DAILY Qty: 30 0RF Protocol: Hold for SBP/HR < HOLD for SBP < : 90 HOLD for HR < : 60 Eliquis 5 mg Tablet 5 mg PO BID Qty: 60 0RF Continued sertraline 50 mg tablet 50 mg PO DAILY Qty: 90 0RF multivitamin Tablet 1 tab PO DAILY 0RF tamsulosin 0.4 mg capsule 0.4 mg PO DAILY@1730 0RF cetirizine 10 mg tablet 10 mg PO DAILY 0RF fluticasone propionate 50 mcg/actuation spray,suspension 2 spray intranasal DAILY 0RF Rx Instructions: administer into each nostril Changed metoprolol succinate 50 mg tablet extended release 24 hr 75 mg PO DAILY Qty: 90 2RF Discharge Orders: Discharge Order (Routine); Ordered 08/25/21 Ordered By: Yadira Kirk Diet: advance to usual diet Activity on Discharge: As tolerated Stand Alone Forms: Patient Portal Discharge page, Work/School Release Care Plan Goals: Visit [email or web address] for detailed information about Eliquis, the new blood thinner that you have been started on for atrial fibrillation Health Concerns: new onset atrial fibrillation with rapid ventricular response Plan of Treatment: 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
== END 2021-08-25 16:46 | disposition home or self-care (01) | DRG 310 ==
LOC: HO.ED 09:12 → HO.EDOVER 09:54 → HO.IMC 12:08
PROVIDERS: Admitting Provider Family Medicine; Emergency Provider Emergency Medicine; PCP Internal Medicine; Visit Provider Nurse Practitioner Acute Care
DX: I48.91 Unspecified atrial fibrillation (principal); I10 Essential (primary) hypertension; N40.0 Benign prostatic hyperplasia without lower urinary tract symptoms; E66.9 Obesity, unspecified; Z68.39 Body mass index [BMI] 39.0-39.9, adult; L71.9 Rosacea, unspecified; Z20.822 Contact with and (suspected) exposure to COVID-19; Z79.01 Long term (current) use of anticoagulants; Z79.51 Long term (current) use of inhaled steroids; Z79.899 Other long term (current) drug therapy
CPT/HCPCS: 36415; 71045; 80048; 83880; 84439; 84443; 84484; 85025; 85027; 85610; 85730; 87635; 93005; 93306; 96365; 96372; 96375; 99219; 99285; J1650; Q9957

== ENCOUNTER → 2021-09-04 14:49 | Outpatient (BNVA) | payer OTHER, SELFPAY | PROVIDERS: PCP Internal Medicine; Referring Provider Internal Medicine; Visit Provider Internal Medicine | DX: I48.91 Unspecified atrial fibrillation (principal); E66.01 Morbid (severe) obesity due to excess calories; Z68.41 Body mass index [BMI] 40.0-44.9, adult; R06.83 Snoring; Z79.01 Long term (current) use of anticoagulants | CPT/HCPCS: 93005 ==

== ENCOUNTER 2021-09-21 08:25 | Day surgery (SDC) | payer OTHER, SELFPAY ==
[2021-09-17 16:14] VITALS: BMI 40.5
--- NOTE | 2021-09-20 10:42 | P.CONAN_ITS ---
Documented by User: Corine Davison NP 09/20/21 10:44 HPI - Anesthesia Eval Consult details Narrative: 55yo M for Cardioversion Eliquis for afib PMFSH Active Problems Active Problems: All Active Problems (Updated 09/17/21 @ 14:51 by Alisson Brink, RN) Hypertension (Acute) Desensitization to allergy shot (Acute) Bilateral carpal tunnel syndrome (Acute) Impaired glucose tolerance (Acute) TSH elevation (Acute) Anxiety (Acute) Colon cancer screening (Acute) Generalized anxiety disorder (Acute) Shoulder pain, bilateral (Acute) Trigger finger of all digits of left hand (Acute) Palpitations (Acute) SOB (shortness of breath) on exertion (Acute) Carpal tunnel syndrome on both sides (Acute) Atrial fibrillation (Acute) Hospital discharge follow-up (Acute) Morbid obesity (Acute) Snoring (Acute) Hypertriglyceridemia (Acute) Past Medical History Medical History (Updated 09/17/21 @ 14:51 by Alisson Brink RN) Acute meniscal tear of left knee Allergic rhinitis Atrial fibrillation BPH (benign prostatic hyperplasia) COVID-19 vaccine series completed COVID-19 virus infection Essential hypertension Hypertriglyceridemia Insomnia Obesity (BMI 30-39.9) Rosacea Family History Family History Father Diabetes CVA (cerebral vascular accident) Mother Hypertension Brother No problems noted. Brother No problems noted. Sister No problems noted. Sister No problems noted. Daughter No problems noted. Daughter No problems noted. Surgical History Surgical History H/O thumb surgery H/O vasectomy History of facial surgery Hx of knee surgery Social History Social History Household Members: Spouse and Family Housing: House Alcohol intake: current Alcohol intake frequency: does not drink Patient Tobacco Use Status: Never used Tobacco e-Cigarette/Vaping Use: Never Used Second Hand Smoke Exposure: No Use of substances other than those prescribed or required for medical reasons: No Are you DNR?: No Advance Directives: No Advance Directives Information Provided: Yes Advance Directives Date on File: 08/24/21 Recently lost weight without trying: No Nutrition Risks: No Nutritional Risk service: No Current occupational status: employed Cognitive needs: No Hearing needs: No Vision needs: No Meds Allergies Allergy/AdvReac Type Severity Reaction Status Date / Time No Known Allergies Allergy Verified 09/11/21 11:26 Home Medications Medication Instructions Recorded Confirmed Last Taken Type cetirizine 10 mg tablet 10 mg PO DAILY 08/14/21 09/17/21 08/23/21 History fluticasone propionate 50 2 spray INTRANASAL DAILY 08/14/21 09/17/21 08/23/21 History mcg/actuation nasal spray,suspension multivitamin 1 tab PO DAILY 08/24/21 09/17/21 08/23/21 History tamsulosin 0.4 mg capsule 0.4 mg PO DAILY@1730 08/24/21 09/17/21 08/23/21 History Exam Exam Date and Time: September 20, 2021 1042 Height,Weight and Vital Signs: Height 5 ft 7 in Weight 117.48 kg Pertinent Lab Results Pertinent Lab Results: Laboratory Tests 08/25/21 08/25/21 06:34 06:34 WBC 7.3 Hgb 15.0 Hct 45.2 Plt Count 207 Sodium 139 Potassium 4.2 Chloride 106 Carbon Dioxide 26 BUN 17 H Creatinine 1.11 Narrative Narrative: EKG 08/2021 atrial fibrillation, 88/Min; no significant ST-T changes and otherwise unremarkable Assessment and Plan Assessment Anesthesia Assessment: Chart Reviewed Documented by User: Khris Espinoza MD 09/21/21 10:06 [facility] Past Medical History Medical History (Updated 09/17/21 @ 14:51 by Alisson Brink RN) Acute meniscal tear of left knee Allergic rhinitis Atrial fibrillation BPH (benign prostatic hyperplasia) COVID-19 vaccine series completed COVID-19 virus infection Essential hypertension Hypertriglyceridemia Insomnia Obesity (BMI 30-39.9) Rosacea Functional capacity: independent ambulation Family History Family History Father Diabetes CVA (cerebral vascular accident) Mother Hypertension Brother No problems noted. Brother No problems noted. Sister No problems noted. Sister No problems noted. Daughter No problems noted. Daughter No problems noted. Family history of problems with anesthesia: No Surgical History Surgical History H/O thumb surgery H/O vasectomy History of facial surgery Hx of knee surgery History of Problems with Anesthesia: No Social History Social History Household Members: Spouse and Family Housing: House Alcohol intake: current Alcohol intake frequency: does not drink Patient Tobacco Use Status: Never used Tobacco e-Cigarette/Vaping Use: Never Used Second Hand Smoke Exposure: No Use of substances other than those prescribed or required for medical reasons: No Are you DNR?: No Advance Directives: No Advance Directives Information Provided: Yes Advance Directives Date on File: 08/24/21 Recently lost weight without trying: No Nutrition Risks: No Nutritional Risk service: No Current occupational status: employed Cognitive needs: No Hearing needs: No Vision needs: No Meds Allergies Allergy/AdvReac Type Severity Reaction Status Date / Time No Known Allergies Allergy Verified 09/11/21 11:26 Home Medications Medication Instructions Recorded Confirmed Last Taken Type cetirizine 10 mg tablet 10 mg PO DAILY 08/14/21 09/17/21 08/23/21 History fluticasone propionate 50 2 spray INTRANASAL DAILY 08/14/21 09/17/21 08/23/21 History mcg/actuation nasal spray,suspension multivitamin 1 tab PO DAILY 08/24/21 09/17/21 08/23/21 History tamsulosin 0.4 mg capsule 0.4 mg PO DAILY@1730 08/24/21 09/17/21 08/23/21 History Exam Airway Mallampati Class: III TM Dist: >3cm Neck ROM: Full Loose/Missing/Broken Teeth: Yes Heart: Irregular Lungs: distant breath sounds Assessment and Plan Assessment Anesthesia Assessment: Anesthesia Plan Discussed Final Anesthetic Review Family History of Problems with Anesthesia: No History of Problems with Anesthesia: No NPO: Yes ASA Class: III Final Preanesthetic Review: Meds/Allgs Chart Reviewed, Consent Obtained/Reviewed and Anes Risks/Benef Reviewed Patient Risk: Intermediate Procedure Risk: Intermediate Anesthetic Plan Anesthetic Plan: MAC: Disposition: Standard PACU
[2021-09-21 08:51] VITALS: BMI 39.1
[2021-09-21 09:05] VITALS: BP 127/90; PULSE 100; RESP 16; TEMP 36.2; O2SAT 98
[2021-09-21] MEDS: Lactated Ringers 1,000 ML 100 ML IVCONT (09:16)
--- NOTE | 2021-09-21 09:31 | MHC.SHP ---
Pre-Procedural Eval Section A Date of Service: 09/21/21 The patient is an INPATIENT: No Section B Chief Complaint: Unspecified atrial fibrillation Allergies: Allergies Allergy/AdvReac Type Severity Reaction Status Date / Time No Known Allergies Allergy Verified 09/11/21 11:26 Plan I have reviewed the history and physical and performed a pertinent physical examination on my patient. No changes have occurred unless specified.
--- NOTE | 2021-09-21 09:45 | ECG_ITS ---
Test Reason : S/P CARDIOVERSION Blood Pressure : / mmHG Vent. Rate : 082 BPM Atrial Rate : 082 BPM P-R Int : 182 ms QRS Dur : 104 ms QT Int : 364 ms P-R-T Axes : 037 -27 000 degrees QTc Int : 425 ms Normal sinus rhythm Low voltage QRS Cannot rule out Anterior infarct , age undetermined Abnormal ECG When compared with ECG of 24-AUG-2021 07:45, Premature supraventricular complexes are no longer Present Vent. rate has decreased BY 50 BPM Inverted T waves have replaced nonspecific T wave abnormality in Inferior leads Referred By: Amanda Katz Electronically Signed By:AMANDA KATZ
--- NOTE | 2021-09-21 09:48 | HO.CARDIVERS ---
Cardioversion Procedure Note Cardioversion Date of Procedure: 09/21/2021 Ordering Provider: Dr. Murray Performing Provider: Dr. Murray Indication for Procedure: Atrial fibrillation with rapid rate Pre-Op Diagnosis: Atrial fibrillation Post-Op Diagnosis: Sinus rhythm History: Symptomatic atrial fibrillation with shortness of breath. Consent: Informed consent obtained. Procedure: After informed consent was obtained, patient was taken to the PACU. The patient was then positioned appropriately. The cardioversion pads were placed in anteroposterior position. Once under anesthesia, 120 joules of synchronized shock was administered. The rhythm converted from atrial fibrillation to sinus rhythm. Patient remained in sinus rhythm after the end of procedure. Complications: None. Impression: Successful cardioversion from atrial fibrillation to sinus. Recommendations: Start flecainide. Stop diltiazem. Continue metoprolol. Continue anticoagulation. Follow-up will be arranged.
[2021-09-21 09:51] VITALS: BP 128/83; PULSE 83; RESP 15; TEMP 36.2; O2SAT 98
[2021-09-21 09:56] VITALS: BP 124/81; PULSE 80; RESP 15; O2SAT 98
[2021-09-21 10:06] VITALS: BP 130/85; PULSE 76; RESP 15; O2SAT 97
[2021-09-21] MEDS: Flecainide Acetate 50 MG TABLET PO (10:06)
[2021-09-21 10:21] VITALS: BP 129/95; PULSE 78; RESP 16; TEMP 36.2; O2SAT 96
== END 2021-09-21 10:51 | disposition home or self-care (01) ==
PROVIDERS: PCP Internal Medicine; Visit Provider Internal Medicine
PROC: 5A2204Z Restoration of Cardiac Rhythm, Single (ICD-10-PCS; principal; 2021-09-21 10:00)
DX: I48.91 Unspecified atrial fibrillation (principal); R06.83 Snoring; J30.9 Allergic rhinitis, unspecified; E66.01 Morbid (severe) obesity due to excess calories; Z68.41 Body mass index [BMI] 40.0-44.9, adult; Z79.01 Long term (current) use of anticoagulants; Z79.899 Other long term (current) drug therapy; Z86.16 Personal history of COVID-19
CPT/HCPCS: 92960; 93005

== ENCOUNTER → 2021-09-26 09:22 | Outpatient (BNVA) | payer OTHER, SELFPAY | PROVIDERS: PCP Internal Medicine; Referring Provider Internal Medicine; Visit Provider Internal Medicine ==

== ENCOUNTER → 2021-10-15 10:57 | Outpatient (REF) | payer OTHER, SELFPAY | LOC: HO.SL 10:57 | PROVIDERS: PCP Internal Medicine; Visit Provider Internal Medicine | DX: G47.33 Obstructive sleep apnea (adult) (pediatric) (principal) | CPT/HCPCS: 95806 ==

== ENCOUNTER → 2021-10-30 10:51 | Outpatient (REF) | payer OTHER, SELFPAY ==
--- NOTE | 2021-10-30 10:54 | HM_ITS ---
* Total monitoring time 2 days and 23 hours. * Underlying rhythm is sinus. Average rate 72/Min. Range 47 to 116/Min. * No atrial fibrillation or flutter or AV blocks or pauses. * Very rare PACs/PVCs. Minimal burden. * No patient events. MTDD
--- NOTE | 2021-10-30 10:54 | CA_ITS ---
Acquisition Time: 2021-10-30 11:15:41 Total Exercise Time: 00:07:39 Test Indications: AFIB, SOB Medications: SEE CHART Protocol: ARNOLD Max HR: 162 BPM 97% of Pred: 166 BPM Max BP: 128/076 mmHG Max Work Load: 9.5 METS Exercise stress test with exercise 7 min 39 sec of Arnold protocol, achieving 97% MPHR, without anginal symptoms, without arrythmia, with normotensive response to exercise ( peak BP not obtained), without EKG changes meeting criteria for ischemia. Echo images obtained by tech at rest and immediately post peak exercise. Definity contrast used. Test reviewed with Dr Murray. Referred By: Mynor Murray Overread By: ARACELIS RUTH
== END ==
LOC: HO.CARD 10:51
PROVIDERS: Visit Provider Internal Medicine
DX: I48.91 Unspecified atrial fibrillation (principal); R06.02 Shortness of breath
CPT/HCPCS: 93242; 93350; Q9957

== ENCOUNTER → 2021-12-24 08:55 | Outpatient (BNVA) | payer OTHER, SELFPAY | PROVIDERS: PCP Internal Medicine; Referring Provider Internal Medicine; Visit Provider Internal Medicine | DX: I48.0 Paroxysmal atrial fibrillation (principal); E66.01 Morbid (severe) obesity due to excess calories; G47.33 Obstructive sleep apnea (adult) (pediatric) | CPT/HCPCS: 93005 ==

== ENCOUNTER → 2022-01-02 08:56 | Outpatient (BNVA) | payer OTHER, SELFPAY | PROVIDERS: PCP Internal Medicine; Visit Provider Internal Medicine | DX: Z79.899 Other long term (current) drug therapy (principal) | CPT/HCPCS: 93005 ==

== ENCOUNTER → 2022-07-04 10:08 | Outpatient (BNVA) | payer OTHER, SELFPAY | PROVIDERS: PCP Internal Medicine; Referring Provider Internal Medicine; Visit Provider Internal Medicine | DX: I48.0 Paroxysmal atrial fibrillation (principal); G47.33 Obstructive sleep apnea (adult) (pediatric); E66.01 Morbid (severe) obesity due to excess calories; Z68.36 Body mass index [BMI] 36.0-36.9, adult | CPT/HCPCS: 93005 ==

== ENCOUNTER 2022-07-05 07:37 | Outpatient (REF) | payer OTHER, SELFPAY ==
[2022-07-05 07:48] LABS: MANUAL DIFF FLAG NO
[2022-07-05 08:09] LABS: Basophils Absolute Auto 0.1 X10*3/uL (0.0-0.2); Basophils Percent Auto 1.1 % (0-2); Eosinophils Absolute Auto 0.5 X10*3/uL (0.0-0.4); Eosinophils Percent Auto 7.2 % (0-4); Hematocrit 43.5 % (42.0-52.0); Hemoglobin 14.6 g/dl (14.0-18.0); Imm Gran Abs Auto 0.02 X10*3/uL (0.00-0.03); Imm Gran Pct Auto 0.3 % (0.0-0.4); Lymphocytes Percent Auto 30.5 % (20-40); Mean Corpuscular HGB Conc 33.6 g/dl (31.0-36.0); Mean Corpuscular Hemoglobin 30.1 pg (27.0-33.0); Mean Corpuscular Volume 89.7 fL (80.0-98.0); Mean Platelet Volume 11.1 fL (9.4-12.4); Monocytes Absolute Auto 0.6 X10*3/uL (0.1-1.2); Monocytes Percent Auto 8.9 % (2-11); Neutrophils Absolute Auto 3.3 x10*3/uL (2.0-8.3); Platelet Count 200 X10*3/uL (160-400); Red Blood Count 4.85 X10*6/uL (4.60-5.80); Red Cell Distribution Width 13.7 % (11.0-16.0); White Blood Count 6.4 X10*3/uL (4.8-10.8)
[2022-07-05 08:14] LABS: Estimated Average Glucose 111 mg/dL; Hemoglobin A1c % 5.5 %
[2022-07-05 08:35] LABS: Alanine Aminotransferase 25 U/L (0-40); Albumin Level 4.3 g/dL (3.5-5.0); Alkaline Phosphatase 64 U/L (39-117); Anion Gap 12 (12-20); Aspartate Amino Transferase 21 U/L (5-37); Bilirubin Total 0.5 mg/dL (0.0-1.0); Blood Urea Nitrogen 23 mg/dL (9-16); Calcium 9.4 mg/dL (8.4-10.2); Carbon Dioxide 28 mmol/L (22-29); Chloride 104 mmol/L (96-108); Cholesterol 181 mg/dL; Estimated Glomerular Filt Rate > 60; Glucose Random 97 mg/dL (60-115); HDL Cholesterol 41 mg/dL; LDL Cholesterol Calculated 110 mg/dl; Potassium 4.4 mmol/L (3.3-5.1); Sodium 140 mmol/L (135-145); Triglycerides 154 mg/dL
[2022-07-05 09:03] LABS: Folate 18.4 ng/mL (> or = 4.0); Free T4 (Free Thyroxine) 0.72 ng/dL (0.71-1.85); Prostate Specific Antigen Scr 1.51 ng/mL (<0.05-4.0); Thyroid Stimulating Hormone 7.58 uIU/mL (0.32-4.0); Vitamin B12 770 pg/mL (200-900)
[2022-07-08 20:44] LABS: Lyme Abs Screen <0.90 index
== END 2022-07-05 07:38 | disposition home or self-care (01) ==
LOC: HO.LAB 07:37
PROVIDERS: PCP Internal Medicine; Visit Provider Internal Medicine
DX: Z12.5 Encounter for screening for malignant neoplasm of prostate (principal); E78.00 Pure hypercholesterolemia, unspecified; E78.1 Pure hyperglyceridemia; G56.03 Carpal tunnel syndrome, bilateral upper limbs; R73.02 Impaired glucose tolerance (oral); R79.89 Other specified abnormal findings of blood chemistry; I10 Essential (primary) hypertension
CPT/HCPCS: 36415; 80053; 80061; 82607; 82746; 83036; 84153; 84439; 84443; 85025; 86617; 86618

== ENCOUNTER → 2022-07-22 15:18 | Outpatient (BNVA) | payer OTHER, SELFPAY | PROVIDERS: PCP Internal Medicine; Visit Provider Internal Medicine | DX: Z13.89 Encounter for screening for other disorder (principal) ==

== ENCOUNTER 2022-08-30 08:34 | Outpatient (REF) | payer OTHER, SELFPAY ==
[2022-08-30 09:49] LABS: Free T4 (Free Thyroxine) 0.88 ng/dL (0.71-1.85); Thyroid Stimulating Hormone 7.66 uIU/mL (0.32-4.0)
[2022-09-02 18:48] LABS: Thyroid Peroxidase Antibodies <1 IU/mL (<9)
== END 2022-08-30 08:35 | disposition home or self-care (01) ==
LOC: HO.LAB 08:34
PROVIDERS: PCP Internal Medicine; Visit Provider Internal Medicine
DX: R94.6 Abnormal results of thyroid function studies (principal)
CPT/HCPCS: 36415; 84439; 84443; 86376; 86900; 86901

== ENCOUNTER 2022-12-05 09:44 | Outpatient (REF) | payer OTHER, SELFPAY ==
[2022-12-05 12:31] LABS: Free T4 (Free Thyroxine) 0.72 ng/dL (0.71-1.85); Thyroid Stimulating Hormone 4.75 uIU/mL (0.32-4.0)
== END 2022-12-05 09:45 | disposition home or self-care (01) ==
LOC: HO.LAB 09:44
PROVIDERS: PCP Internal Medicine; Visit Provider Internal Medicine
DX: R94.6 Abnormal results of thyroid function studies (principal)
CPT/HCPCS: 36415; 84439; 84443

== ENCOUNTER 2022-12-10 14:22 | Outpatient (AMB) | payer OTHER, SELFPAY ==
--- NOTE | 2022-12-10 14:28 | MHC.PC.OV ---
Vital Signs 12/10/22 14:36 Height 5 ft 7 in Weight 246 lb BMI 38.5 BP 130/74 Blood Pressure Location Lt brachial Position Sitting Pulse 65 Pulse Source Pulse Oximeter Pulse Oximetry (%) 97 Oxygen Delivery Method Room Air Intake Visit Reasons: a fib Allergies No Known Allergies Allergy (Verified 12/10/22 14:36) Tobacco use date assessed: 07/05/22 Dental Screening Dental Screen Date: 12/10/22 Did you have a dental visit in the last 12 months?: Yes Did you have a dental problem in the last 6 months where you did not have access to dental care?: No Was dental information given to patient?: Patient has dentist HPI a fib HPI Details 56-year-old obese male with atrial fibrillation hypercholesterolemia impaired glucose tolerance hypertension BPH and generalize anxiety disorder last seen in August 2022 patient complained of pain on the right foot x-ray was requested. Patient is here for follow-up. Patient had an elevated TSH and was advised to repeat the test patient has lost weight before because of daughter having a wedding and now noted to be gaining weight. Patient will have another wedding to attend to the other daughter and so will try to lose the weight but discussed with the patient on the need to maintain the weight loss. Patient has spoken to Cardiology and will be kept on flecainide until the patient retires and that is in 2 years presently would not like to stop the flecainide. [facility] Medical History (Updated 12/10/22 @ 14:50 by Es Cuenca MD) Acute meniscal tear of left knee Allergic rhinitis Anxiety Atrial fibrillation BPH (benign prostatic hyperplasia) Colon cancer screening COVID-19 vaccine series completed COVID-19 virus infection Essential hypertension Hypertriglyceridemia Insomnia Obesity (BMI 30-39.9) Rosacea SOB (shortness of breath) on exertion Trigger finger of all digits of left hand Surgical History H/O thumb surgery H/O vasectomy History of facial surgery Hx of knee surgery Family History Father Diabetes CVA (cerebral vascular accident) Mother Hypertension Brother No problems noted. Brother No problems noted. Sister No problems noted. Sister No problems noted. Daughter No problems noted. Daughter No problems noted. Social History Household Members: Spouse and Family Housing: House Alcohol intake: current Alcohol intake frequency: does not drink Patient Tobacco Use Status: Never used Tobacco e-Cigarette/Vaping Use: Never Used Second Hand Smoke Exposure: No Advance Directives Date on File: 08/24/21 service: No Current occupational status: employed Cognitive needs: No Hearing needs: No Vision needs: No Questionnaire PHQ-9 Over the last 2 weeks, how often have you been bothered by any of the following problems? 1. Little interest or pleasure in doing things: not at all 2. Feeling down, depressed, or hopeless: not at all 3. Trouble falling or staying asleep, or sleeping too much: not at all 4. Feeling tired or having little energy: not at all 5. Poor appetite or overeating: not at all 6. Feeling bad about yourself - or that you are a failure or have let yourself or your family down: not at all 7. Trouble concentrating on things, such as reading the newspaper or watching television: not at all 8. Moving or speaking so slowly that other people could have noticed. Or the opposite - being so fidgety or restless that you have been moving around a lot more than usual: not at all 9. Thoughts that you would be better off or of hurting yourself in some way: not at all Total score: 0 Depression Screening Interpretation: Negative Source: Developed by Drs. Kayden Vera, Darvin Ortiz and colleagues, with an educational joe from [employer]. Thrive Questionnaire Date Thrive assessed: 07/05/22 AUDIT C Alcohol Use Questionnaire (AUDIT-C) 1. How often do you have a drink containing alcohol?: Monthly or less 2. How many drinks containing alcohol do you have on a typical day when you are drinking?: 1 or 2 3. How often do you have six or more drinks on one occasion?: Never Total Score: 1 AMARIS-7 AMB Questionnaire AMARIS-7 Date AMARIS - 7 assessed: 07/05/22 Source: Developed by Drs. Kayden Vera, Vida Bonner, Darvin Kamara and colleagues, with an educational joe from [employer]. Physical exam (Primary Care) Vital Signs: Last Vital Signs Pulse 65 12/10/22 14:36 BP 130/74 12/10/22 14:36 Pulse Ox 97 12/10/22 14:36 Oxygen Delivery Method Room Air 12/10/22 14:36 BMI result Body Mass Index 38.5 Tobacco/Smoking Status: Tobacco use Status Tobacco use date assessed 07/05/22 12/10/22 14:29 Patient Tobacco Use Status Never used Tobacco 12/10/22 14:29 e-Cigarette/Vaping Use Never Used 12/10/22 14:29 PHQ-9: PHQ-9 Score PHQ-9: Total score 0 12/10/22 14:40 Depression Screening Interpretation: Negative Thrive Assessment: Date of Thrive Assessment Date Thrive assessed 07/05/22 12/10/22 14:29 Const General: alert; No acute distress Eyes Conjunctivae: conjunctivae normal Resp Auscultation: clear to auscultation bilaterally Cardio Rate: regular rate Rhythm: regular rhythm GI Inspection: Yes normal to inspection Extrem General: Yes normal to inspection and No edema Assessment and Plan Assessment & Plan (1) PAF (paroxysmal atrial fibrillation): Comment: Cardioversion August 2021 Using CPAP would be helpful in preventing any recurrence of cardiac arr.hythmias August 2021The left ventricular systolic function is normal. The visually estimated ejection fraction is between 55-60%. - No obvious valvular pathology seen on this study. Code(s): I48.0 - Paroxysmal atrial fibrillation Plan: Continue with flecainide (2) BPH (benign prostatic hyperplasia): Code(s): N40.0 - Benign prostatic hyperplasia without lower urinary tract symptoms Qualifiers: Lower urinary tract symptom presence: symptoms present Lower urinary tract symptom detail: urinary frequency Qualified Code(s): N40.1 - Benign prostatic hyperplasia with lower urinary tract symptoms; R35.0 - Frequency of micturition Plan: Stable and continue to use the tamsulosin (3) CITLALY (obstructive sleep apnea): Comment: OBSTRUCTIVE SLEEP APNEA BEING TREATED VERY WELL WITH THE USE OF CPAP. PATIENT CLAIMS THAT HIS SLEEP QUALITY IS MUCH BETTER, HE LOVES HIS CPAP. ORDER FOR NEW SUPPLIES IS BEING SENT. Code(s): G47.33 - Obstructive sleep apnea (adult) (pediatric) Plan: Continue to use the CPAP more than 4 hours a night and benefits from this (4) Hypertension: Code(s): I10 - Essential (primary) hypertension Qualifiers: Hypertension type: essential hypertension Qualified Code(s): I10 - Essential (primary) hypertension Plan: Continue with blood pressure medication. Decrease salt intake and exercise patient is on metoprolol 75 mg once a day (5) Morbid obesity: Comment: HE STARTED WITH MORBID OBESITY BUT NOW HE HAS LOST SIGNIFICANT WEIGHT, CURRENT BMI 36.8. HE IS ENCOURAGED TO KEEP ON LOSING WEIGHT. Code(s): E66.01 - Morbid (severe) obesity due to excess calories Plan: Diet and exercise (6) Generalized anxiety disorder: Code(s): F41.1 - Generalized anxiety disorder Plan: Continue with sertraline (7) Impaired glucose tolerance: Code(s): R73.02 - Impaired glucose tolerance (oral) Plan: Decrease the amount of carbohydrate intake, pasta, bread, rice and potatoes are all sugar and that is aside from all the sweet stuff, remember that fruits are good but they are Sweet also. (8) Hypertriglyceridemia: Code(s): E78.1 - Pure hyperglyceridemia Plan: Avoid fried foods, chicken skin, eggs, butter margarine, pastries and meat. Be it pork or beef they have a lot of cholesterol LDL goal of less than 130 and triglyceride of less than 150 (9) TSH elevation: Code(s): R79.89 - Other specified abnormal findings of blood chemistry (10) Colon cancer screening: Code(s): Z12.11 - Encounter for screening for malignant neoplasm of colon Orders: Referrals Cologuard Test Z12.11 - Encounter for screening for malignant neoplasm of colon Coding Level of Care Code Est Pt Level 4 (59275) Diagnoses PAF (paroxysmal atrial fibrillation) I48.0 BPH (benign prostatic hyperplasia) N40.1; R35.0 Lower urinary tract symptom presence: symptoms present Lower urinary tract symptom detail: urinary frequency CITLALY (obstructive sleep apnea) G47.33 Hypertension I10 Hypertension type: essential hypertension Morbid obesity E66.01 Generalized anxiety disorder F41.1 Impaired glucose tolerance R73.02 Hypertriglyceridemia E78.1 TSH elevation R79.89 Colon cancer screening Z12.11
[2022-12-10 14:36] VITALS: BP 130/74; PULSE 65; O2SAT 97; BMI 38.5
== END 2022-12-10 14:59 | disposition home or self-care (01) ==
PROVIDERS: PCP Internal Medicine; Visit Provider Internal Medicine
DX: I48.0 Paroxysmal atrial fibrillation (principal); I10 Essential (primary) hypertension; E66.01 Morbid (severe) obesity due to excess calories; Z68.38 Body mass index [BMI] 38.0-38.9, adult; N40.1 Benign prostatic hyperplasia with lower urinary tract symptoms; R35.0 Frequency of micturition; G47.33 Obstructive sleep apnea (adult) (pediatric); F41.1 Generalized anxiety disorder; R73.02 Impaired glucose tolerance (oral); E78.1 Pure hyperglyceridemia; R79.89 Other specified abnormal findings of blood chemistry; Z12.11 Encounter for screening for malignant neoplasm of colon
CPT/HCPCS: 99214

== ENCOUNTER 2023-07-02 13:56 | Outpatient (AMB) | payer OTHER, SELFPAY ==
--- NOTE | 2023-07-02 14:01 | MHC.OFFVIS ---
Intake Vital Signs 07/02/23 14:02 Height 5 ft 7 in Weight 265 lb 10.512 oz BMI 41.6 BP 102/72 Blood Pressure Location Lt brachial Position Sitting Pulse 73 Pulse Source Pulse Oximeter Pulse Oximetry (%) 98 Oxygen Delivery Method Room Air Intake Visit Reasons: dionna Intake Note: pt is here for follow up and using cpap, he states he is doing fine. 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 HE HAS BEEN USING CPAP REGULARLY AND ACTUALLY SLEEPING WELL. HE WOULD NOT BE ABLE TO SLEEP WITHOUT PUTTING ON THE CPAP. HE WORKS AT THE [employer] AND SO ENDS UP MISSING THE CPAP A FEW NIGHTS PER MONTH. DURING THE PAST YEAR HE HAS GRADUALLY GAINED MORE WEIGHT. THIS IS BECAUSE OF HIS KNEES PROBLEM AND HE IS NOT ABLE TO DO MUCH WALKING OR JOGGING. IS HARD FOR HIM TO RESTRICT THE DIETARY INTAKE. HE DOES HAVE MILD DEPRESSION WHICH IS CONTROLLED WITH MEDICATION. [facility] Medical History Atrial fibrillation Essential hypertension COVID-19 vaccine series completed SOB (shortness of breath) on exertion Trigger finger of all digits of left hand Colon cancer screening Anxiety COVID-19 virus infection Acute meniscal tear of left knee Insomnia BPH (benign prostatic hyperplasia) Allergic rhinitis Rosacea Obesity (BMI 30-39.9) Hypertriglyceridemia Surgical History History of facial surgery H/O vasectomy Hx of knee surgery H/O thumb surgery Family History Father Diabetes CVA (cerebral vascular accident) Mother Hypertension Brother No problems noted. Brother No problems noted. Sister No problems noted. Sister No problems noted. Daughter No problems noted. Daughter No problems noted. Social History Household Members: Spouse and Family Housing: House Alcohol intake: current Alcohol intake frequency: does not drink Patient Tobacco Use Status: Never used Tobacco e-Cigarette/Vaping Use: Never Used Second Hand Smoke Exposure: No Advance Directives Date on File: 08/24/21 service: No Current occupational status: employed Cognitive needs: No Hearing needs: No Vision needs: No Review of Systems Const All systems reviewed & are unremarkable except as noted in HPI and below Reports snoring Eyes Reports no additional complaints ENT Reports nasal congestion (Off and on) Card Denies chest pain, Reports irregular heart rhythm and Denies leg edema Resp Denies cough, Reports snoring, Denies stridor and Denies wheezing GI Reports no additional complaints Reports urinary hesitancy and Reports other (Being treated for BPH) Musc Reports arthralgias (Both knees) Skin/Breast Reports system reviewed and no additional complaints, except as documented Neuro Reports no additional complaints Psych Reports depression (Mild controlled) Aller/Immun Denies wheezing Physical Exam Vital Signs: Last Vital Signs Pulse 73 07/02/23 14:02 BP 102/72 07/02/23 14:02 Pulse Ox 98 07/02/23 14:02 Oxygen Delivery Method Room Air 07/02/23 14:02 BMI result Body Mass Index 41.6 WEIGHT IS DOWN BY 27 LB SINCE OCTOBER 2021 Const General: healthy appearing (Except for being overweight), comfortable, no acute distress, alert and awake Orientation/consciousness: patient oriented x3 HEENT Head: Yes normal to inspection General nose exam: No nasal polyps present and No nasal discharge present Face and sinus: Yes sinuses nontender Mouth: oropharynx normal Throat: No posterior oropharynx normal (Moderately crowded, Mallampati class 3) Eyes General: appearance normal, both eyes and all related structures Neck Neck: Yes normal visual inspection, Yes no lymphadenopathy, Yes trachea midline and Yes no JVD Thyroid: Thyroid normal Chest Chest palpation & inspection: normal inspection of the chest, normal palpation of entire chest wall and no tenderness Resp Effort & Inspection: normal respiratory effort Auscultation: clear to auscultation bilaterally, no crackles, no rales and no wheezes Cardio Palpation: normal PMI Rate: regular rate Rhythm: regular rhythm Heart sounds: no gallops and no murmurs Peripheral pulses: Peripheral pulses 2+ throughout GI Palpation (GI): Soft to palpation, nontender, No hepatosplenomegaly present and no masses Auscultation: normal bowel sounds Back/Spine/Pelvis Thoracic/Lumbar Spine: thoracic and lumbar spine normal to inspection Skin General skin exam: no rashes or lesions noted Neuro General: patient oriented x3 and no focal motor deficits Cranial nerves: Yes CN's II-XII intact bilaterally Extrem General: Yes normal to inspection, Yes no clubbing, cyanosis or edema and Yes no calf tenderness Psych Appearance: grossly normal and well kempt Speech and movement: Normal speech and movement present Results Reviewed Results Reviewed: COMPLIANCE REPORT FOR THE LAST 30 NIGHTS REVIEWED. HE HAS USED 222/30 NIGHTS, 73%. AVERAGE USE IT PER NIGHT 5 HOURS 43 MINUTES. PRESSURE USED MOSTLY 8 CM. RESIDUAL AHI ONLY 0.1 Assessment & Plan Assessment & Plan (1) Morbid obesity: Comment: HE STARTED WITH MORBID OBESITY. ON HIS LAST VISIT 1 YEAR AGO HE HAD ACTUALLY LOST SOME WEIGHT, BUT UNFORTUNATELY DURING THE YEAR HE HAS GAINED IT BACK AND CURRENT BMI 41.6. Code(s): E66.01 - Morbid (severe) obesity due to excess calories Plan: HAD A LONG DISCUSSION ABOUT THE WEIGHT REDUCTION. HE HAS DIFFICULTY IN WALKING OR JOGGING. I ADVISED HIM TO DO EXERCISES AT THE [employer], MAINLY FOR THE UPPER EXTREMITIES AND BACK. HE SHOULD CUT DOWN THE INTAKE OF CARBOHYDRATES. INCREASE INTAKE OF FLUIDS AND SALADS AND FRUITS. I WOULD SEE HIM EVERY 6 MONTHS TO MAKE SURE THAT HE IS LOSING SOME WEIGHT. (2) DIONNA (obstructive sleep apnea): Comment: OBSTRUCTIVE SLEEP APNEA BEING TREATED VERY WELL WITH THE USE OF CPAP. PATIENT CLAIMS THAT HIS SLEEP QUALITY IS MUCH BETTER, HE LOVES HIS CPAP. COMPLIANCE IS REVIEWED WITH HIM AND IT IS GOOD. Code(s): G47.33 - Obstructive sleep apnea (adult) (pediatric) Plan: COMMENDED FOR GOOD COMPLIANCE AND ADVISED TO CONTINUE USING THE CPAP EVERY NIGHT. Coding Level of Care Code Est Pt Level 3 (93211) Diagnoses Morbid obesity E66.01 DIONNA (obstructive sleep apnea) G47.33
[2023-07-02 14:02] VITALS: BP 102/72; PULSE 73; O2SAT 98; BMI 41.6
== END 2023-07-02 14:25 | disposition home or self-care (01) ==
PROVIDERS: PCP Internal Medicine; Visit Provider Internal Medicine
DX: E66.01 Morbid (severe) obesity due to excess calories (principal); G47.33 Obstructive sleep apnea (adult) (pediatric)
CPT/HCPCS: 99213

== ENCOUNTER → 2023-07-02 13:56 | Outpatient (BNVA) | payer OTHER, SELFPAY | PROVIDERS: PCP Internal Medicine; Visit Provider Internal Medicine ==

== ENCOUNTER 2023-09-18 13:14 | Outpatient (AMB) | payer OTHER, SELFPAY ==
--- NOTE | 2023-09-18 13:32 | MHC.OFFVIS ---
Vital Signs 09/18/23 13:33 Height 5 ft 7 in Weight 260 lb 2.327 oz BMI 40.7 BP 120/76 Blood Pressure Location Lt brachial Position Sitting Pulse 63 Intake Visit Reasons: R/S 6 month follow up Buttonholer Required: No Accompanied by: Self / Same As Patient Allergies No Known Allergies Allergy (Verified 07/02/23 14:24) Medication List - Last Reconciled 09/18/23 by Mynor Murray MD alprazolam 0.25 mg PO BEDTIME PRN 90 days flecainide 50 mg PO Q12H fluticasone propionate 50 mcg/actuation 2 sprays intranasal DAILY metoprolol succinate ER 75 mg (1.5 x 50 mg) PO DAILY 90 days multivitamin 1 tab PO DAILY semaglutide 0.5 mg subcut QWEEK sertraline 50 mg PO DAILY tamsulosin 0.4 mg PO DAILY@1730 90 days HPI Comments Details: Rich returns for follow-up regarding atrial fibrillation. To recall, he came for colonoscopy and found to have atrial fibrillation with rapid rate. Then underwent cardioversion after appropriate anticoagulation. After some time, we tried to stop his flecainide but he immediately got back palpitations/atrial fibrillation. Then he was put back on flecainide. Continues to be on the same. He also has obstructive sleep apnea on sleep study and started CPAP. 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 Since last seen, no new issues. No palpitations. He states he started Semaglutide and has lost about 10 lb or so so far. He wants to lose much more. [facility] Medical History Atrial fibrillation Essential hypertension COVID-19 vaccine series completed SOB (shortness of breath) on exertion Trigger finger of all digits of left hand Colon cancer screening Anxiety COVID-19 virus infection Acute meniscal tear of left knee Insomnia BPH (benign prostatic hyperplasia) Allergic rhinitis Rosacea Obesity (BMI 30-39.9) Hypertriglyceridemia Surgical History History of facial surgery H/O vasectomy Hx of knee surgery H/O thumb surgery Family History Father Diabetes CVA (cerebral vascular accident) Mother Hypertension Brother No problems noted. Brother No problems noted. Sister No problems noted. Sister No problems noted. Daughter No problems noted. Daughter No problems noted. Social History Household Members: Spouse and Family Housing: House Alcohol intake: current Alcohol intake frequency: does not drink Patient Tobacco Use Status: Never used Tobacco e-Cigarette/Vaping Use: Never Used Second Hand Smoke Exposure: No Advance Directives Date on File: 08/24/21 service: No Current occupational status: employed Cognitive needs: No Hearing needs: No Vision needs: No Review of Systems Const Denies chills, Denies fatigue, Denies fever(s), Denies frequent falls, Denies weakness, Denies weight gain and Denies weight loss ENT Denies dizziness Card Denies chest pain, Denies leg edema, Denies lightheadedness, Denies palpitations, Denies dyspnea and Denies dyspnea on exertion Resp Denies cough, Denies dyspnea and Denies dyspnea on exertion GI Denies hematochezia Musc Denies abnormal gait, Denies muscle weakness, Denies numbness, Denies radiating pain into limb and Denies tingling Neuro Denies abnormal gait, Denies dizziness, Denies frequent falls, Denies numbness, Denies tingling and Denies weakness Endo Denies fatigue and Denies palpitations Physical Exam Vital Signs: Last Vital Signs Pulse 63 09/18/23 13:33 BP 120/76 09/18/23 13:33 BMI result Body Mass Index 40.7 Const General: comfortable and no acute distress Orientation/consciousness: patient oriented x3 HEENT Other: Unremarkable Head: Yes normal to inspection Neck Neck: Yes normal visual inspection Chest Chest palpation & inspection: normal inspection of the chest Resp Auscultation: clear to auscultation bilaterally Cardio Palpation: normal PMI Heart sounds: S1 normal heart sound present, S2 normal heart sound present, no gallops, no murmurs and no rubs GI Palpation (GI): Soft to palpation Back/Spine/Pelvis Other: unremarkable Skin General skin exam: no rashes or lesions noted Neuro General: patient oriented x3 Extrem General: Yes normal to inspection Psych Mental Status: mental status grossly normal Office Procedures EKG Details: EKG with sinus rhythm at 63/Min; no significant ST-T changes; slightly prolonged ME at 204 millisecond; [place]. [id number], Complete Assessment & Plan Assessment & Plan (1) PAF (paroxysmal atrial fibrillation): Code(s): I48.0 - Paroxysmal atrial fibrillation Category: Medical Plan: Status post cardioversion. Once flecainide was stopped, he got atrial fibrillation immediately. Hence continue. 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 Also on metoprolol. Not on any anticoagulation due to low thromboembolic risk. (2) Morbid obesity: Code(s): E66.01 - Morbid (severe) obesity due to excess calories Category: Medical Plan: He states he is started Semaglutide with the intention of weight loss. Hopefully helps. (3) CITLALY (obstructive sleep apnea): Code(s): G47.33 - Obstructive sleep apnea (adult) (pediatric) Category: Medical Plan: Continue CPAP. Coding Level of Care Code Est Pt Level 4 (39634) Diagnoses PAF (paroxysmal atrial fibrillation) I48.0 Morbid obesity E66.01 CITLAYL (obstructive sleep apnea) G47.33 CPT Codes EKG - CPT: [id number], Complete ([id number])
[2023-09-18 13:33] VITALS: BP 120/76; PULSE 63; BMI 40.7
== END 2023-09-18 14:01 | disposition home or self-care (01) ==
PROVIDERS: PCP Internal Medicine; Visit Provider Internal Medicine
DX: I48.0 Paroxysmal atrial fibrillation (principal); E66.01 Morbid (severe) obesity due to excess calories; G47.33 Obstructive sleep apnea (adult) (pediatric)
CPT/HCPCS: 93010; 99214

== ENCOUNTER → 2023-09-18 13:14 | Outpatient (BNVA) | payer OTHER, SELFPAY | PROVIDERS: PCP Internal Medicine; Visit Provider Internal Medicine | DX: I48.0 Paroxysmal atrial fibrillation (principal); E66.01 Morbid (severe) obesity due to excess calories; Z68.41 Body mass index [BMI] 40.0-44.9, adult; G47.33 Obstructive sleep apnea (adult) (pediatric); Z79.899 Other long term (current) drug therapy; Z99.89 Dependence on other enabling machines and devices | CPT/HCPCS: 93005 ==

== ENCOUNTER 2023-12-15 13:24 | Outpatient (AMB) | payer OTHER, SELFPAY ==
[2023-12-15 13:27] VITALS: BP 124/72; PULSE 95; O2SAT 97; BMI 37.9
--- NOTE | 2023-12-15 13:27 | A.OFFPC_ITS ---
Vital Signs 12/15/23 13:27 Height 5 ft 7 in Weight 242 lb BMI 37.9 BP 124/72 Blood Pressure Location Lt brachial Position Sitting Pulse 95 Pulse Source Pulse Oximeter Pulse Oximetry (%) 97 Oxygen Delivery Method Room Air Intake Visit Reasons: Change in medication Allergies No Known Allergies Allergy (Verified 12/15/23 13:31) Medication List - Last Reconciled 12/15/23 by Es Cuenca MD alprazolam 0.25 mg PO BEDTIME PRN 90 days flecainide 50 mg PO Q12H fluticasone propionate 50 mcg/actuation 2 sprays intranasal DAILY metoprolol succinate ER 75 mg (1.5 x 50 mg) PO DAILY 90 days sertraline 50 mg PO DAILY tamsulosin 0.4 mg PO DAILY@1730 90 days tirzepatide (Mounjaro) 2.5 mg (0.5 mL) subcut QWEEK 4 weeks Tobacco use date assessed: 12/15/23 Dental Screening Dental Screen Date: 12/15/23 Did you have a dental visit in the last 12 months?: Yes Did you have a dental problem in the last 6 months where you did not have access to dental care?: No Was dental information given to patient?: Patient has dentist HPI Change in medication HPI Details 57-year-old morbidly obese male(noted 5 lb weight loss) with atrial fibrillation sleep apnea hypertension generalized anxiety disorder BPH IGT and hypercholesterolemia coming in for follow-up. Last seen in 12/10/2022. Review of the notes has seen Cardiology in August 2023 regarding atrial fibrillation patient underwent cardioversion after taking off flecainide patient went back into atrial fibrillation flecainide was continued. Patient has been started on semaglutide and has lost 10 lb. Patient also follows up with Pulmonary seen in June 2023 for the sleep apnea. PAltient has CITLALY, A fib - wants to use the mounjaro - [facility] Medical History (Updated 12/15/23 @ 13:34 by Es Cuenca MD) Atrial fibrillation Essential hypertension COVID-19 vaccine series completed SOB (shortness of breath) on exertion Trigger finger of all digits of left hand Colon cancer screening Anxiety COVID-19 virus infection Acute meniscal tear of left knee Insomnia BPH (benign prostatic hyperplasia) Allergic rhinitis Rosacea Obesity (BMI 30-39.9) Hypertriglyceridemia Surgical History History of facial surgery H/O vasectomy Hx of knee surgery H/O thumb surgery Family History Father Diabetes CVA (cerebral vascular accident) Mother Hypertension Brother No problems noted. Brother No problems noted. Sister No problems noted. Sister No problems noted. Daughter No problems noted. Daughter No problems noted. Social History Household Members: Spouse and Family Housing: House Alcohol intake: current Alcohol intake frequency: does not drink Patient Tobacco Use Status: Never used Tobacco e-Cigarette/Vaping Use: Never Used Second Hand Smoke Exposure: No Advance Directives Date on File: 08/24/21 service: No Current occupational status: employed Cognitive needs: No Hearing needs: No Vision needs: No Questionnaire PHQ-9 Over the last 2 weeks, how often have you been bothered by any of the following problems? 1. Little interest or pleasure in doing things: not at all 2. Feeling down, depressed, or hopeless: not at all 3. Trouble falling or staying asleep, or sleeping too much: not at all 4. Feeling tired or having little energy: not at all 5. Poor appetite or overeating: not at all 6. Feeling bad about yourself - or that you are a failure or have let yourself or your family down: not at all 7. Trouble concentrating on things, such as reading the newspaper or watching television: not at all 8. Moving or speaking so slowly that other people could have noticed. Or the opposite - being so fidgety or restless that you have been moving around a lot more than usual: not at all 9. Thoughts that you would be better off or of hurting yourself in some way: not at all Total score: 0 Depression Screening Interpretation: Negative Depression Screening Done: Yes Source: Developed by Drs. Kayden Vera, Vida Bonner, Darvin Kamara and colleagues, with an educational joe from [employer]. Thrive Questionnaire Date Thrive assessed: 12/15/23 I am a: Patient What is your living situation today?: I have a steady place to live Within the past 12 months, did the food you bought not last and you didn't have the money to get more?: Never true Within the past 12 months, did you worry whether your food would run out before you got money to buy more?: Never true Do you have trouble paying for medicines?: No Do you have trouble getting transportation to medical appointments?: No Do you have trouble paying your heating and electricity bill?: No Do you have trouble taking care of your child, family member or friend?: No Do you have trouble with day-to-day activities such as bathing, preparing meals, shopping, managing finances, etc.?: No Are you currently unemployed and looking for a job?: No Are you interested in more education?: No Please select the resources that you would like help with: None Currently or been in a relationship where the following occur: No concerns reported THRIVE Score: 0 AUDIT C Alcohol Use Questionnaire (AUDIT-C) 1. How often do you have a drink containing alcohol?: Monthly or less 2. How many drinks containing alcohol do you have on a typical day when you are drinking?: 1 or 2 3. How often do you have six or more drinks on one occasion?: Never Total Score: 1 AMARIS-7 AMB Questionnaire AMARIS-7 Date AMARIS - 7 assessed: 12/15/23 Source: Developed by Drs. Kayden Vera, Vida Bonner, Darvin Kamara and colleagues, with an educational joe from [employer]. Physical exam (Primary Care) Vital Signs: Last Vital Signs Pulse 95 12/15/23 13:27 BP 124/72 12/15/23 13:27 Pulse Ox 97 12/15/23 13:27 Oxygen Delivery Method Room Air 12/15/23 13:27 BMI result Body Mass Index 37.9 Tobacco/Smoking Status: Tobacco use Status Tobacco use date assessed 12/15/23 12/15/23 13:31 Patient Tobacco Use Status Never used Tobacco 12/15/23 13:31 e-Cigarette/Vaping Use Never Used 12/15/23 13:31 PHQ-9: PHQ-9 Score PHQ-9: Total score 0 12/15/23 13:31 Depression Screening Interpretation: Negative Thrive Assessment: Date of Thrive Assessment Date Thrive assessed 12/15/23 12/15/23 13:31 Currently or been in a relationship where the following occur: No concerns reported Const General: alert; No acute distress Eyes Conjunctivae: conjunctivae normal Resp Auscultation: clear to auscultation bilaterally Cardio Rate: regular rate Rhythm: regular rhythm GI Inspection: Yes normal to inspection Extrem General: Yes normal to inspection and No edema Assessment and Plan Assessment & Plan (1) PAF (paroxysmal atrial fibrillation): Code(s): I48.0 - Paroxysmal atrial fibrillation Plan: Patient follows up with Cardiology on flecainide. (2) CITLALY (obstructive sleep apnea): Comment: CPAP Code(s): G47.33 - Obstructive sleep apnea (adult) (pediatric) Plan: Continue to use the CPAP more than 4 hours a night and benefits from this (3) BPH (benign prostatic hyperplasia): Code(s): N40.0 - Benign prostatic hyperplasia without lower urinary tract symptoms Qualifiers: Lower urinary tract symptom presence: symptoms present Lower urinary tract symptom detail: urinary frequency Qualified Code(s): N40.1 - Benign prostatic hyperplasia with lower urinary tract symptoms; R35.0 - Frequency of micturition Plan: Patient follows up with urology on tamsulosin (4) Hypertension: Code(s): I10 - Essential (primary) hypertension Qualifiers: Hypertension type: essential hypertension Qualified Code(s): I10 - Essential (primary) hypertension Plan: Continue with blood pressure medication. Decrease salt intake and exercise takes metoprolol 75 mg once a day (5) Impaired glucose tolerance: Code(s): R73.02 - Impaired glucose tolerance (oral) Plan: Decrease the amount of carbohydrate intake, pasta, bread, rice and potatoes are all sugar and that is aside from all the sweet stuff, remember that fruits are good but they are Sweet also. (6) Generalized anxiety disorder: Code(s): F41.1 - Generalized anxiety disorder Plan: Continue with alprazolam as needed and sertraline 50 mg once a day (7) Hypertriglyceridemia: Code(s): E78.1 - Pure hyperglyceridemia Plan: Avoid fried foods, chicken skin, eggs, butter margarine, pastries and meat. Be it pork or beef they have a lot of cholesterol diet controlled LDL goal of less than 130 and triglyceride of less than 150. (8) Obesity (BMI 30-39.9): Code(s): E66.9 - Obesity, unspecified Orders: Orders Complete Blood Count Auto Diff Today R73.02 - Impaired glucose tolerance (oral) Comprehensive Met. Panel Today R73.02 - Impaired glucose tolerance (oral) Hemoglobin A1c Today R73.02 - Impaired glucose tolerance (oral) Thyroid Stimulating Hormone Today R73.02 - Impaired glucose tolerance (oral) Vitamin B12 and Folate Today R73.02 - Impaired glucose tolerance (oral) Free T4 (Free Thyroxine) Today R73.02 - Impaired glucose tolerance (oral) Lipid Panel Today E78.00 - Pure hypercholesterolemia, unspecified, R73.02 - Impaired glucose tolerance (oral) Prostate Specific Antigen Scr Today R73.02 - Impaired glucose tolerance (oral) Medications: New tirzepatide (Mounjaro) 2.5 mg (0.5 mL) subcut QWEEK 4 weeks 2 mL 0RF E66.01 - M orbid (severe) obesity due to excess calories Coding Level of Care Code Est Pt Level 4 (73080) Diagnoses PAF (paroxysmal atrial fibrillation) I48.0 CITLALY (obstructive sleep apnea) G47.33 Benign prostatic hyperplasia with urinary frequency N40.1; R35.0 Lower urinary tract symptom presence: symptoms present Lower urinary tract symptom detail: urinary frequency Essential hypertension I10 Hypertension type: essential hypertension Impaired glucose tolerance R73.02 Generalized anxiety disorder F41.1 Hypertriglyceridemia E78.1 Obesity (BMI 30-39.9) E66.9
== END 2023-12-15 13:51 | disposition home or self-care (01) ==
PROVIDERS: PCP Internal Medicine; Visit Provider Internal Medicine
DX: I48.0 Paroxysmal atrial fibrillation (principal); G47.33 Obstructive sleep apnea (adult) (pediatric); N40.1 Benign prostatic hyperplasia with lower urinary tract symptoms; R35.0 Frequency of micturition; I10 Essential (primary) hypertension; R73.02 Impaired glucose tolerance (oral); F41.1 Generalized anxiety disorder; E78.1 Pure hyperglyceridemia
CPT/HCPCS: 99214

== ENCOUNTER 2024-02-24 13:47 | Outpatient (AMB) | payer OTHER, SELFPAY ==
[2024-02-24 14:00] VITALS: BP 102/68; PULSE 84; O2SAT 96; BMI 37.8
--- NOTE | 2024-02-24 14:00 | A.OFFVIS_ITS ---
Vital Signs 02/24/24 14:00 Height 5 ft 7 in Weight 241 lb 6.499 oz BMI 37.8 BP 102/68 Blood Pressure Location Lt brachial Position Sitting Pulse 84 Pulse Source Pulse Oximeter Pulse Oximetry (%) 96 Oxygen Delivery Method Room Air Intake Visit Reasons: dionna Intake Note: pt is here for follow up and states he is doing well, using cpap, [employer] Required: No Allergies No Known Allergies Allergy (Verified 02/24/24 14:30) Medication List - Last Reconciled 02/24/24 by Ana Castaneda MD alprazolam 0.25 mg PO BEDTIME PRN 90 days flecainide 50 mg PO Q12H fluticasone propionate 50 mcg/actuation 2 sprays intranasal DAILY metoprolol succinate ER 75 mg (1.5 x 50 mg) PO DAILY 90 days sertraline 50 mg PO DAILY tamsulosin 0.4 mg PO DAILY@1730 90 days tirzepatide (Mounjaro) 2.5 mg (0.5 mL) subcut QWEEK 4 weeks Do you need a note to return to daycare/school/sports/work: No HPI HPI dionna: Details: Rich is 58 years old gentleman grossly obese and with diagnosis of obstructive sleep apnea. He is using CPAP, and benefiting from it. Lately he has been traveling a lot and missed for many nights. He can not tell that when he uses CPAP he sleeps much better, He is looking into if he can have a travel CPAP device, so that he can use when he travels. His weight remains unchanged he has been recently started on Mounjaro injection. [facility] Medical History Atrial fibrillation Essential hypertension COVID-19 vaccine series completed SOB (shortness of breath) on exertion Trigger finger of all digits of left hand Colon cancer screening Anxiety COVID-19 virus infection Acute meniscal tear of left knee Insomnia BPH (benign prostatic hyperplasia) Allergic rhinitis Rosacea Obesity (BMI 30-39.9) Hypertriglyceridemia Surgical History History of facial surgery H/O vasectomy Hx of knee surgery H/O thumb surgery Family History Father Diabetes CVA (cerebral vascular accident) Mother Hypertension Brother No problems noted. Brother No problems noted. Sister No problems noted. Sister No problems noted. Daughter No problems noted. Daughter No problems noted. Social History Household Members: Spouse and Family Housing: House Alcohol intake: current Alcohol intake frequency: does not drink Patient Tobacco Use Status: Never used Tobacco e-Cigarette/Vaping Use: Never Used Second Hand Smoke Exposure: No Advance Directives Date on File: 08/24/21 service: No Current occupational status: employed Cognitive needs: No Hearing needs: No Vision needs: No Review of Systems Const All systems reviewed & are unremarkable except as noted in HPI and below Reports snoring Eyes Reports no additional complaints ENT Reports nasal congestion (Off and on) Card Denies chest pain, Reports irregular heart rhythm and Denies leg edema Resp Denies cough, Reports snoring, Denies stridor and Denies wheezing GI Reports no additional complaints Reports urinary hesitancy and Reports other (Being treated for BPH) Musc Reports arthralgias (Both knees) Skin/Breast Reports system reviewed and no additional complaints, except as documented Neuro Reports no additional complaints Psych Reports depression (Mild controlled) Aller/Immun Denies wheezing Physical Exam Vital Signs: Last Vital Signs Pulse 84 02/24/24 14:00 BP 102/68 02/24/24 14:00 Pulse Ox 96 02/24/24 14:00 Oxygen Delivery Method Room Air 02/24/24 14:00 BMI result Body Mass Index 37.8 WEIGHT IS DOWN BY 27 LB SINCE OCTOBER 2021 Const General: healthy appearing (Except for being overweight), comfortable, no acute distress, alert and awake Orientation/consciousness: patient oriented x3 HEENT Head: Yes normal to inspection General nose exam: No nasal polyps present and No nasal discharge present Face and sinus: Yes sinuses nontender Mouth: oropharynx normal Throat: No posterior oropharynx normal (Moderately crowded, Mallampati class 3) Eyes General: appearance normal, both eyes and all related structures Neck Neck: Yes normal visual inspection, Yes no lymphadenopathy, Yes trachea midline and Yes no JVD Thyroid: Thyroid normal Chest Chest palpation & inspection: normal inspection of the chest, normal palpation of entire chest wall and no tenderness Resp Effort & Inspection: normal respiratory effort Auscultation: clear to auscultation bilaterally, no crackles, no rales and no wheezes Cardio Palpation: normal PMI Rate: regular rate Rhythm: regular rhythm Heart sounds: no gallops and no murmurs Peripheral pulses: Peripheral pulses 2+ throughout GI Palpation (GI): Soft to palpation, nontender, No hepatosplenomegaly present and no masses Auscultation: normal bowel sounds Back/Spine/Pelvis Thoracic/Lumbar Spine: thoracic and lumbar spine normal to inspection Skin General skin exam: no rashes or lesions noted Neuro General: patient oriented x3 and no focal motor deficits Cranial nerves: Yes CN's II-XII intact bilaterally Extrem General: Yes normal to inspection, Yes no clubbing, cyanosis or edema and Yes no calf tenderness Psych Appearance: grossly normal and well kempt Speech and movement: Normal speech and movement present Results Reviewed Results Reviewed: Compliance report for the last 30 nights is reviewed and he has used 17/30 nights, 57% of the time Average use it per night 4 hours 5 minutes average pressure being use 7.3 Residual AHI 0.2 on the nights when he uses CPAP. Assessment & Plan Assessment & Plan (1) Obesity (BMI 30-39.9): Comment: Remains grossly obese but starting to lose weight with the use of Mounjaro Code(s): E66.9 - Obesity, unspecified Category: Medical Plan: Encouraged to keep on losing weight (2) DIONNA (obstructive sleep apnea): Comment: He is a known case of obstructive sleep apnea which is being treated successfully with the use of CPAP. Lately CPAP compliance is suboptimal because of his travels. Code(s): G47.33 - Obstructive sleep apnea (adult) (pediatric) Category: Medical Plan: I advised him to carry his CPAP device with him when he travels. He is looking into getting a travel CPAP device . I told him it may not be covered by insurance and he will have to buy [id number]. The best option would be for him to carry his CPAP with him when he travels. Coding Level of Care Code Est Pt Level 3 (33194) Diagnoses Obesity (BMI 30-39.9) E66.9 DIONNA (obstructive sleep apnea) G47.33
== END 2024-02-24 14:28 | disposition home or self-care (01) ==
PROVIDERS: PCP Internal Medicine; Visit Provider Internal Medicine
DX: E66.9 Obesity, unspecified (principal); G47.33 Obstructive sleep apnea (adult) (pediatric)
CPT/HCPCS: 99213

== ENCOUNTER → 2024-02-24 13:47 | Outpatient (BNVA) | payer OTHER, SELFPAY | PROVIDERS: PCP Internal Medicine; Visit Provider Internal Medicine ==

== ENCOUNTER 2024-03-16 13:23 | Outpatient (AMB) | payer OTHER, SELFPAY ==
[2024-03-16 13:30] VITALS: BP 118/70; PULSE 87; BMI 37.6
--- NOTE | 2024-03-16 13:30 | A.OFFVIS_ITS ---
Vital Signs 03/16/24 13:30 Height 5 ft 7 in Weight 240 lb 4.862 oz BMI 37.6 BP 118/70 Blood Pressure Location Lt brachial Position Sitting Pulse 87 Pulse Source Monitor Intake Visit Reasons: 6m follow up Allergies No Known Allergies Allergy (Verified 02/24/24 14:30) Medication List - Last Reconciled 03/16/24 by Mynor Murray MD alprazolam 0.25 mg PO BEDTIME PRN 90 days flecainide 50 mg PO Q12H fluticasone propionate 50 mcg/actuation 2 sprays intranasal DAILY metoprolol succinate ER 75 mg (1.5 x 50 mg) PO DAILY 90 days sertraline 50 mg PO DAILY tamsulosin 0.4 mg PO DAILY@1730 90 days tirzepatide (Mounjaro) 2.5 mg (0.5 mL) subcut QWEEK 4 weeks HPI Comments Details: Rich returns for follow-up regarding atrial fibrillation. To recall, few years ago, he came for colonoscopy and found to have atrial fibrillation with rapid rate. Then underwent cardioversion after appropriate anticoagulation. After some time, we tried to stop his flecainide but he immediately got back palpitations/atrial fibrillation. Then he was put back on flecainide. Continues to be on the same. He also has obstructive sleep apnea on sleep study and started CPAP. Since last seen, no new issues. No palpitations. Feels fine otherwise. [facility] Medical History Atrial fibrillation Essential hypertension COVID-19 vaccine series completed SOB (shortness of breath) on exertion Trigger finger of all digits of left hand Colon cancer screening Anxiety COVID-19 virus infection Acute meniscal tear of left knee Insomnia BPH (benign prostatic hyperplasia) Allergic rhinitis Rosacea Obesity (BMI 30-39.9) Hypertriglyceridemia Surgical History History of facial surgery H/O vasectomy Hx of knee surgery H/O thumb surgery Family History Father Diabetes CVA (cerebral vascular accident) Mother Hypertension Brother No problems noted. Brother No problems noted. Sister No problems noted. Sister No problems noted. Daughter No problems noted. Daughter No problems noted. Social History Household Members: Spouse and Family Housing: House Alcohol intake: current Alcohol intake frequency: does not drink Patient Tobacco Use Status: Never used Tobacco e-Cigarette/Vaping Use: Never Used Second Hand Smoke Exposure: No Advance Directives Date on File: 08/24/21 service: No Current occupational status: employed Cognitive needs: No Hearing needs: No Vision needs: No Review of Systems Const Denies weakness ENT Denies dizziness Card Denies chest pain, Denies chest pain with activity, Denies syncope, Denies rapid heart rate, Denies pedal edema, Denies edema, Denies leg edema, Denies lightheadedness, Denies palpitations, Denies dyspnea, Denies dyspnea on exertion and Denies orthopnea Resp Denies cough, Denies dyspnea and Denies dyspnea on exertion GI Denies hematochezia and Denies change in stool character Musc Denies abnormal gait, Denies muscle cramps, Denies muscle weakness, Denies numbness, Denies radiating pain into limb and Denies tingling Neuro Denies abnormal gait, Denies dizziness, Denies syncope, Denies numbness, Denies tingling and Denies weakness Endo Denies palpitations Physical Exam Vital Signs: Last Vital Signs Pulse 87 03/16/24 13:30 BP 118/70 03/16/24 13:30 BMI result Body Mass Index 37.6 Const General: comfortable and no acute distress Orientation/consciousness: patient oriented x3 HEENT Other: Unremarkable Head: Yes normal to inspection Neck Neck: Yes normal visual inspection Chest Chest palpation & inspection: normal inspection of the chest Resp Auscultation: clear to auscultation bilaterally Cardio Palpation: normal PMI Heart sounds: S1 normal heart sound present, S2 normal heart sound present, no gallops, no murmurs and no rubs GI Palpation (GI): Soft to palpation Back/Spine/Pelvis Other: unremarkable Skin General skin exam: no rashes or lesions noted Neuro General: patient oriented x3 Extrem General: Yes normal to inspection Psych Mental Status: mental status grossly normal Office Procedures EKG Details: EKG with underlying sinus rhythm at 87/Min; inferior T-wave changes but was seen in the prior EKG[place]. [id number], Complete Assessment & Plan Assessment & Plan (1) PAF (paroxysmal atrial fibrillation): Code(s): I48.0 - Paroxysmal atrial fibrillation Category: Medical Plan: Status post cardioversion. Continue flecainide/beta-blockers. Not on anticoagulation due to low thromboembolic risk. (2) Morbid obesity: Code(s): E66.01 - Morbid (severe) obesity due to excess calories Category: Medical Plan: We have discussed this many times including today. Losing weight will certainly help his atrial fibrillation recurrence rate. It will improve his cardiovascular risk profile overall. (3) CITLALY (obstructive sleep apnea): Comment: He is a known case of obstructive sleep apnea which is being treated successfully with the use of CPAP. Lately CPAP compliance is suboptimal because of his travels. Code(s): G47.33 - Obstructive sleep apnea (adult) (pediatric) Category: Medical Plan: Continue CPAP. Plan Considering age, weight, diabetes, nonspecific inferior changes in the EKG, flecainide use, obtain coronary CTA. Orders: Orders CT Cardiac Coronary Angio Today I25.10 - Atherosclerotic heart disease of [place] coronary artery without angina pectoris Basic Metabolic Panel Today I48.0 - Paroxysmal atrial fibrillation Coding Level of Care Code Est Pt Level 4 (26956) Diagnoses PAF (paroxysmal atrial fibrillation) I48.0 Morbid obesity E66.01 CITLALY (obstructive sleep apnea) G47.33 CPT Codes EKG - CPT: 86451-[id number], Complete ([id number])
== END 2024-03-16 13:52 | disposition home or self-care (01) ==
PROVIDERS: PCP Internal Medicine; Visit Provider Internal Medicine
DX: I48.0 Paroxysmal atrial fibrillation (principal); E66.01 Morbid (severe) obesity due to excess calories; G47.33 Obstructive sleep apnea (adult) (pediatric)
CPT/HCPCS: 93010; 99214

== ENCOUNTER → 2024-03-16 13:23 | Outpatient (BNVA) | payer OTHER, SELFPAY | PROVIDERS: PCP Internal Medicine; Visit Provider Internal Medicine | DX: I48.0 Paroxysmal atrial fibrillation (principal); E66.01 Morbid (severe) obesity due to excess calories; Z68.37 Body mass index [BMI] 37.0-37.9, adult; G47.33 Obstructive sleep apnea (adult) (pediatric); Z79.899 Other long term (current) drug therapy; Z99.89 Dependence on other enabling machines and devices | CPT/HCPCS: 93005 ==

== ENCOUNTER 2024-04-05 07:59 | Outpatient (REF) | payer OTHER, SELFPAY ==
[2024-04-05 08:25] LABS: MANUAL DIFF FLAG NO
[2024-04-05 08:36] LABS: Basophils Absolute Auto 0.1 X10*3/uL (0.0-0.2); Basophils Percent Auto 0.8 % (0-2); Eosinophils Absolute Auto 0.6 X10*3/uL (0.0-0.4); Eosinophils Percent Auto 9.3 % (0-4); Hematocrit 41.2 % (42.0-52.0); Hemoglobin 14.1 g/dl (14.0-18.0); Imm Gran Abs Auto 0.02 X10*3/uL (0.00-0.03); Imm Gran Pct Auto 0.3 % (0.0-0.4); Lymphocytes Absolute Auto 1.8 X10*3/uL (1.2-4.9); Lymphocytes Percent Auto 30.3 % (20-40); Mean Corpuscular HGB Conc 34.2 g/dl (31.0-36.0); Mean Corpuscular Hemoglobin 30.3 pg (27.0-33.0); Mean Corpuscular Volume 88.4 fL (80.0-98.0); Mean Platelet Volume 10.6 fL (9.4-12.4); Monocytes Absolute Auto 0.6 X10*3/uL (0.1-1.2); Monocytes Percent Auto 9.1 % (2-11); Neutrophils Percent Auto 50.2 % (45-73); Platelet Count 188 X10*3/uL (160-400); Red Blood Count 4.66 X10*6/uL (4.60-5.80); Red Cell Distribution Width 13.4 % (11.0-16.0)
[2024-04-05 08:56] LABS: Estimated Average Glucose 108 mg/dL; Hemoglobin A1C 134.0207 umol/L; Hemoglobin A1c % 5.4 % (<6.0); Total Hemoglobin (HGBA1C) 3730.4882 umol/L
[2024-04-05 09:21] LABS: Alanine Aminotransferase 25 U/L (0-40); Albumin Level 4.1 g/dL (3.5-5.0); Alkaline Phosphatase 53 U/L (39-117); Anion Gap 10 (12-20); Aspartate Amino Transferase 24 U/L (5-37); Bilirubin Total 0.4 mg/dL (0.0-1.0); Blood Urea Nitrogen 13 mg/dL (9-16); Calcium 9.1 mg/dL (8.4-10.2); Carbon Dioxide 26 mmol/L (22-29); Chloride 106 mmol/L (96-108); Cholesterol 162 mg/dL (<200); Estimated Glomerular Filt Rate > 60; Glucose Random 101 mg/dL (60-115); HDL Cholesterol 40 mg/dL (>40); LDL Cholesterol Calculated 85 mg/dL (<100); Potassium 4.2 mmol/L (3.3-5.1); Sodium 138 mmol/L (135-145); Triglycerides 187 mg/dL (<150)
[2024-04-05 09:29] LABS: Thyroid Stimulating Hormone 4.41 uIU/mL (0.32-4.0)
[2024-04-05 09:48] LABS: Folate 9.4 ng/mL (> or = 4.0); Prostate Specific Antigen Scr 1.05 ng/mL (<0.05-4.0); Vitamin B12 1047 pg/mL (200-900)
== END 2024-04-05 08:00 | disposition home or self-care (01) ==
LOC: HO.LAB 07:59
PROVIDERS: Absent Provider Internal Medicine; PCP Internal Medicine; Visit Provider Internal Medicine
DX: R73.02 Impaired glucose tolerance (oral) (principal); E78.00 Pure hypercholesterolemia, unspecified; Z12.5 Encounter for screening for malignant neoplasm of prostate
CPT/HCPCS: 36415; 80053; 80061; 82607; 82746; 83036; 84153; 84439; 84443; 85025

== ENCOUNTER 2024-06-22 14:14 | Outpatient (AMB) | payer OTHER, SELFPAY ==
--- NOTE | 2024-06-22 14:33 | MHC.PC.OV ---
Vital Signs 06/22/24 14:34 Height 57 ft Weight 252 lb BMI 0.4 BP 120/80 Blood Pressure Location Lt brachial Position Sitting Pulse 86 Pulse Source Pulse Oximeter Temp 96.9 F Temp Source Skin Pulse Oximetry (%) 96 Oxygen Delivery Method Room Air Intake Visit Reasons: PE Intake Note: Patient is here to follow up on HTN. Pt decline flu shot today. Orthodontic Technician Assistant Required: No Digital Traffic Coordinator: Not Required per policy Accompanied by: Self / Same As Patient Allergies No Known Allergies Allergy (Verified 06/22/24 14:34) Tobacco use date assessed: 06/22/24 Dental Screening Dental Screen Date: 06/22/24 Did you have a dental visit in the last 12 months?: Yes Did you have a dental problem in the last 6 months where you did not have access to dental care?: No Was dental information given to patient?: Patient has dentist HPI PE HPI Details The patient is a 58-year-old male presenting with management concerns related to atrial fibrillation and associated conditions. The patient reports a history of atrial fibrillation, which has been monitored over time, with the last echocardiogram in 2021 showing no significant deterioration. He has been using a CPAP machine for diagnosed sleep apnea but reports inconsistency in its use due to discomfort and travel. 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 He also expressed concerns with mildly elevated blood sugar levels and hyperlipidemia. Recent lab results indicated a fasting glucose of 101, with a need to manage dietary habits as contributors to elevated triglycerides (187 mg/dL). The patient has been on medication for atrial fibrillation, with plans for potential ablation post-jail. He also experiences anxiety, particularly around sleeping, but it has been addressed with alprazolam and sertraline, reducing panic attacks but raising concerns about side effects. The patient developed a reaction at the injection site following the administration of trizepatide, with symptoms described as redness and itching. This reaction was noted over the past two weeks, switching injection sites without resolution. Consideration is being given to weight management medications impacting sleep apnea. [facility] Medical History (Updated 06/22/24 @ 14:49 by Es Cuenca MD) Colon cancer screening Atrial fibrillation Essential hypertension COVID-19 vaccine series completed SOB (shortness of breath) on exertion Trigger finger of all digits of left hand Anxiety COVID-19 virus infection Acute meniscal tear of left knee Insomnia BPH (benign prostatic hyperplasia) Allergic rhinitis Rosacea Obesity (BMI 30-39.9) Hypertriglyceridemia Surgical History History of facial surgery H/O vasectomy Hx of knee surgery H/O thumb surgery Family History Father Diabetes CVA (cerebral vascular accident) Mother Hypertension Brother No problems noted. Brother No problems noted. Sister No problems noted. Sister No problems noted. Daughter No problems noted. Daughter No problems noted. Social History (Updated 06/22/24 @ 14:38 by PATY Denson) Household Members: Spouse and Family Housing: House Alcohol intake: current Alcohol intake frequency: holidays/special occasions only Patient Tobacco Use Status: Never used Tobacco e-Cigarette/Vaping Use: Never Used Second Hand Smoke Exposure: No Advance Directives Date on File: 08/24/21 service: No Current occupational status: employed Cognitive needs: No Hearing needs: No Vision needs: No Questionnaire PHQ-9 Over the last 2 weeks, how often have you been bothered by any of the following problems? 1. Little interest or pleasure in doing things: not at all 2. Feeling down, depressed, or hopeless: not at all 3. Trouble falling or staying asleep, or sleeping too much: not at all 4. Feeling tired or having little energy: not at all 5. Poor appetite or overeating: not at all 6. Feeling bad about yourself - or that you are a failure or have let yourself or your family down: not at all 7. Trouble concentrating on things, such as reading the newspaper or watching television: not at all 8. Moving or speaking so slowly that other people could have noticed. Or the opposite - being so fidgety or restless that you have been moving around a lot more than usual: not at all 9. Thoughts that you would be better off or of hurting yourself in some way: not at all Total score: 0 Depression Screening Interpretation: Negative Depression Screening Done: Yes Source: Developed by Drs. Kayden Vera, Vida BonnerDarvin and colleagues, with an educational joe from [employer]. Thrive Questionnaire Date Thrive assessed: 06/22/24 I am a: Patient What is your living situation today?: I have a steady place to live Within the past 12 months, did the food you bought not last and you didn't have the money to get more?: Never true Within the past 12 months, did you worry whether your food would run out before you got money to buy more?: Never true Do you have trouble paying for medicines?: No Do you have trouble getting transportation to medical appointments?: No Do you have trouble paying your heating and electricity bill?: No Do you have trouble taking care of your child, family member or friend?: No Do you have trouble with day-to-day activities such as bathing, preparing meals, shopping, managing finances, etc.?: No Are you currently unemployed and looking for a job?: No Are you interested in more education?: No Please select the resources that you would like help with: None Currently or been in a relationship where the following occur: No concerns reported THRIVE Score: 0 AUDIT C Alcohol Use Questionnaire (AUDIT-C) 1. How often do you have a drink containing alcohol?: Monthly or less 2. How many drinks containing alcohol do you have on a typical day when you are drinking?: 1 or 2 3. How often do you have six or more drinks on one occasion?: Less than monthly Total Score: 2 AMARIS-7 AMB Questionnaire AMARIS-7 Date AMARIS - 7 assessed: 06/22/24 Feeling nervous, anxious, or on edge: 0 = Not at all Not being able to stop or control worryin = Not at all Worrying too much about different things: 0 = Not at all Trouble relaxin = Not at all Being so restless that it is hard to sit still: 0 = Not at all Becoming easily annoyed or irritable: 0 = Not at all Feeling afraid as if something awful might happen: 0 = Not at all Total AMARIS-7 score (0-4 normal; 5-9 mild; 10-14 moderate; 15-21 severe): 0 Source: Developed by Drs. Kayden Vera, Darvin Ortiz and colleagues, with an educational joe from [employer]. Physical exam (Primary Care) Vital Signs: Last Vital Signs Temp 96.9 F 06/22/24 14:34 Pulse 86 06/22/24 14:34 BP 120/80 06/22/24 14:34 Pulse Ox 96 06/22/24 14:34 Oxygen Delivery Method Room Air 06/22/24 14:34 BMI result Body Mass Index 0.4 Tobacco/Smoking Status: Tobacco use Status Tobacco use date assessed 06/22/24 06/22/24 14:39 Patient Tobacco Use Status Never used Tobacco 06/22/24 14:39 e-Cigarette/Vaping Use Never Used 06/22/24 14:39 PHQ-9: PHQ-9 Score PHQ-9: Total score 0 06/22/24 14:48 Depression Screening Interpretation: Negative Thrive Assessment: Date of Thrive Assessment Date Thrive assessed 06/22/24 06/22/24 14:39 Currently or been in a relationship where the following occur: No concerns reported Const General: alert; No acute distress Eyes Conjunctivae: conjunctivae normal Resp Auscultation: clear to auscultation bilaterally Cardio Rate: regular rate Rhythm: regular rhythm GI Inspection: Yes normal to inspection Extrem General: Yes normal to inspection and No edema Office Procedures Flu Questionnaire Does the patient have a severe egg allergy?: No Does the patient have severe life threatening allergies?: No Does the patient have a fever or illness today?: No Has the patient ever had Guillain-[place] Syndrome?: No Has the patient ever had any past reaction to a flu shot?: No Immunizations Fluarix Triv 5966-4651 (PF) 45 mcg (15 mcg x 3)/0.5 mL IM syringe Performing Provider: Es Cuenca MD [facility] Administered by: Georgia Marrero CMA on 06/22/24 15:15 Dose Route Admin Location Dispensed Lot Number Expiration Date [facility] Artificial Flower Maker 0.5 mL IM Left Deltoid 0.5 mL [id number] 11/22/24 [id number] [employer] VIS Given Date VIS Provided VIS Publication Date 06/22/24 Single Vaccine 20 Eligibility Eligibility Date Funding Source Not [facility] Eligible 06/22/24 Private Coding Level of Care Code Est Pt Level 4 (99098) Complex EM visit Add On G2211 Diagnoses Obesity (BMI 30-39.9) E66.9 PAF (paroxysmal atrial fibrillation) I48.0 CITLALY (obstructive sleep apnea) G47.33 Essential hypertension I10 Hypertension type: essential hypertension Generalized anxiety disorder F41.1 Hypertriglyceridemia E78.1 Assessment & Plan Assessment & Plan (1) Obesity (BMI 30-39.9): Comment: Remains grossly obese but starting to lose weight with the use of Mounjaro Code(s): E66.9 - Obesity, unspecified Category: Medical Plan: diet and exercise (2) PAF (paroxysmal atrial fibrillation): Comment: NO anticoagulation , low thromboemboliuc risk Code(s): I48.0 - Paroxysmal atrial fibrillation Category: Medical (3) CITLALY (obstructive sleep apnea): Comment: He is a known case of obstructive sleep apnea which is being treated successfully with the use of CPAP. Lately CPAP compliance is suboptimal because of his travels. Code(s): G47.33 - Obstructive sleep apnea (adult) (pediatric) Category: Medical (4) Hypertension: Code(s): I10 - Essential (primary) hypertension Category: Medical Qualifiers: Hypertension type: essential hypertension Qualified Code(s): I10 - Essential (primary) hypertension (5) Generalized anxiety disorder: Code(s): F41.1 - Generalized anxiety disorder Category: Medical (6) Hypertriglyceridemia: Code(s): E78.1 - Pure hyperglyceridemia Category: Medical Plan - Continue CPAP therapy for obstructive sleep apnea and emphasize consistent use to prevent complications with atrial fibrillation. - Address atrial fibrillation management with ongoing medication, considering future catheter ablation post-jail. - Monitor blood sugar levels and dietary intake to manage hyperlipidemia and mildly elevated glucose, advising reduction in fast food consumption. - Evaluate and manage the patient's anxiety with current medication regime alprazolam, sertraline), addressing concerns and potential side effects. - Continue assessment of thyroid function due to its past elevation; monitor levels periodically. - Investigate and manage the injection site reaction potentially related to trizepatide, considering alternative medications or formulations for weight and apnea management. - Proceed with weight loss strategies, including medication adjustment with semaglutide or trizepatide, following FDA guidelines for sleep apnea management. - Consider follow-up for insurance-related matters impacting care access, ensuring continuity of medications through appropriate refills. Orders: Orders Complete Blood Count Auto Diff 3 Months I48.0 - Paroxysmal atrial fibrillation Lipid Panel 3 Months E78.00 - Pure hypercholesterolemia, unspecified, I48.0 - Paroxysmal atrial fibrillation Vitamin B12 and Folate 3 Months I48.0 - Paroxysmal atrial fibrillation UA CC w/rflx Micro + Cult 3 Months I48.0 - Paroxysmal atrial fibrillation, R30.0 - Dysuria Comprehensive Met. Panel 3 Months I48.0 - Paroxysmal atrial fibrillation Free T4 (Free Thyroxine) 3 Months I48.0 - Paroxysmal atrial fibrillation Thyroid Stimulating Hormone 3 Months I48.0 - Paroxysmal atrial fibrillation Hemoglobin A1c 3 Months I48.0 - Paroxysmal atrial fibrillation Prostate Specific Antigen Scr 3 Months I48.0 - Paroxysmal atrial fibrillation Medications: New tirzepatide for 4 weeks 2.5 mg (0.5 mL) subcut QWEEK 2 mL 3RF E66.9 - Obesity, unspecified, G47.33 - Obstructive sleep apnea (adult) (pediatric) Refilled alprazolam 0.25 mg PO BEDTIME 90 days PRN 10 tabs 0RF sleep F41.9 - Anxiety disorder, unspecified Discontinued tirzepatide (Brianunjaro) Discontinued Reason: Doctor's Order 2.5 mg (0.5 mL) subcut QWEEK 4 weeks 2 mL 0RF E66.01 - Morbid (severe) obesity due to excess calories
[2024-06-22 14:34] VITALS: BP 120/80; PULSE 86; TEMP 36.1; O2SAT 96
--- OUTSIDE RECORDS SUMMARY | 2024-06-22 15:14 | XMS_ITS | Patient Health Record ---
Author Organization [facility] Address [address] [place] [address] Care Team Providers Care International Coordinator Name Role Phone Es Cuenca MD Primary Care Provider Kayden Jose [phone] ALLERGIES No Known Allergies REASON FOR REFERRAL No Information MEDICATIONS Medication SIG (Take, Route, Frequency, Duration) Notes Start Date End Date Status Tamsulosin HCl 0.4 MG 1 capsule Orally O nce a day for 30 day(s) Active Metoprolol Succinate ER 50 MG Oral for 90 Active Doxycycline Hyclate 20 MG Oral for 90 Active Valtrex 500 MG 1 tablet Orally Once a day for 10 day(s) Active Sertraline HCl 25 MG 1 tablet Orally Onc e a day for 30 day(s) Active IMMUNIZATIONS Vaccine Route Administration Date Status Comme nts Influenza Unknown 03/14/2021 Administered SOCIAL HISTORY Tobacco Use: Social History Observation Description Date Details (start date - stop date) Never Smoker NA - NA Sex Assigned At : Social History Observation Description Sex Assigned At Unknown Tobacco Use/Smoking Question Answer Notes Patient is a nonsmoker Alcohol Screen Question Answer Notes Did you have a drink contain ing alcohol in the past year? Yes How often did you have a dri nk containing alcohol in the past year? Monthly or less (1 point) How many drinks did you have on a typical day when you were drinking in the past year? 1 or 2 drinks (0 point) How often did you have 6 or more drinks on one occasion in the past year? Never (0 point) Points 1 Interpretation Negative PROBLEMS Problem Type ICD Code Onset Dates Problem Status W/U Status Risk SNOMED Code Notes Problem Encounter for screening for malignant neoplasm of colon (Z12.11) Active confirmed 894831694 Problem Preprocedural examination (Z01.818) Active confirmed [id number] PLAN OF TREATMENT Future Test Test Name Order Date COLONOSCOPY 06/28/2021 Insurance Providers Payer Name Payer Address Payer Phone Subscriber Number Group Number Insured Name Patient Relationship to Insured Coverage Start Date Coverage End Date [employer] [address] [place] [address] [id number] JENNYFER HAMPTON Self - patient is the insured MEDICAL (GENERAL) HISTORY Medical History History ICD Code HTN BPH Snores Takes Sertraline for sleep Denies VT,DM,CVA,Lung disease,renal dise ase Rosacea and cold sores Surgical History Surgery Date(Month/Year) Knee meniscus repaired both knees Trigger finger Deviated septum
== END 2024-06-22 15:18 | disposition home or self-care (01) ==
PROVIDERS: PCP Internal Medicine; Visit Provider Internal Medicine
DX: I48.0 Paroxysmal atrial fibrillation (principal); G47.33 Obstructive sleep apnea (adult) (pediatric); I10 Essential (primary) hypertension; F41.1 Generalized anxiety disorder; E78.1 Pure hyperglyceridemia; E66.9 Obesity, unspecified; Z23 Encounter for immunization

== ENCOUNTER → 2024-06-22 14:14 | Outpatient (BNVA) | payer OTHER, SELFPAY | PROVIDERS: PCP Internal Medicine; Visit Provider Internal Medicine | DX: E66.9 Obesity, unspecified (principal); I48.0 Paroxysmal atrial fibrillation; G47.33 Obstructive sleep apnea (adult) (pediatric); I10 Essential (primary) hypertension; F41.1 Generalized anxiety disorder; E78.1 Pure hyperglyceridemia; Z99.89 Dependence on other enabling machines and devices; Z23 Encounter for immunization | CPT/HCPCS: 90471; 90656 ==

== ENCOUNTER 2024-09-09 12:24 | Outpatient (REF) | payer OTHER, SELFPAY ==
[2024-09-09 14:52] LABS: Influenza A PCR NEGATIVE (Negative); Influenza B PCR NEGATIVE (Negative); Resp Syncy Virus RNA Qual PCR NEGATIVE (Negative); SARS COV2 PCR INHOUSE NEGATIVE (Negative)
== END 2024-09-09 12:25 | disposition home or self-care (01) ==
LOC: HO.LAB 12:24
PROVIDERS: PCP Internal Medicine; Visit Provider Internal Medicine
DX: R05.8 Other specified cough (principal)
CPT/HCPCS: 0241U

== ENCOUNTER 2024-09-09 12:24 | Outpatient (AMB) | payer OTHER, SELFPAY ==
[2024-09-09 12:38] VITALS: BP 110/70; BMI 38.5
--- NOTE | 2024-09-09 12:38 | MHC.PC.OV ---
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 Accompanied by: Self / Same As Patient Allergies No Known Allergies Allergy (Verified 09/09/24 12:39) Medication List - Last Reconciled 09/09/24 by Es Cuenca MD alprazolam 0.25 mg PO BEDTIME PRN 90 days amoxicillin-pot clavulanate 875-125 mg 1 tab PO BID flecainide 50 mg PO Q12H fluticasone propionate 50 mcg/actuation 2 sprays intranasal DAILY metoprolol succinate ER 75 mg (1.5 x 50 mg) PO DAILY 90 days sertraline 50 mg PO DAILY tamsulosin 0.4 mg PO DAILY@1730 90 days tirzepatide 2.5 mg (0.5 mL) subcut QWEEK Zepbound (tirzepatide (weight loss)) 2.5 mg (0.5 mL) subcut QWEEK NS Tobacco use date assessed: 09/09/24 Dental Screening Dental Screen Date: 09/09/24 Did you have a dental visit in the last 12 months?: Yes Did you have a dental problem in the last 6 months where you did not have access to dental care?: No Was dental information given to patient?: Patient has dentist HPI sinus infection? HPI Details 1 week ago cold, cough, mucinex cold and flu, 2 days ago- worse, eye discharge no fevers, PFSH Medical History (Updated 09/09/24 @ 13:00 by Es Cuenca MD) Colon cancer screening Atrial fibrillation Essential hypertension COVID-19 vaccine series completed SOB (shortness of breath) on exertion Trigger finger of all digits of left hand Anxiety COVID-19 virus infection Acute meniscal tear of left knee Insomnia BPH (benign prostatic hyperplasia) Allergic rhinitis Rosacea Obesity (BMI 30-39.9) Hypertriglyceridemia Surgical History History of facial surgery H/O vasectomy Hx of knee surgery H/O thumb surgery Family History Father Diabetes CVA (cerebral vascular accident) Mother Hypertension Brother No problems noted. Brother No problems noted. Sister No problems noted. Sister No problems noted. Daughter No problems noted. Daughter No problems noted. Social History Household Members: Spouse and Family Housing: House Alcohol intake: current Alcohol intake frequency: holidays/special occasions only Patient Tobacco Use Status: Never used Tobacco e-Cigarette/Vaping Use: Never Used Second Hand Smoke Exposure: No Advance Directives Date on File: 08/24/21 service: No Current occupational status: employed Cognitive needs: No Hearing needs: No Vision needs: No Questionnaire PHQ-9 Over the last 2 weeks, how often have you been bothered by any of the following problems? 1. Little interest or pleasure in doing things: not at all 2. Feeling down, depressed, or hopeless: not at all 3. Trouble falling or staying asleep, or sleeping too much: not at all 4. Feeling tired or having little energy: not at all 5. Poor appetite or overeating: not at all 6. Feeling bad about yourself - or that you are a failure or have let yourself or your family down: not at all 7. Trouble concentrating on things, such as reading the newspaper or watching television: not at all 8. Moving or speaking so slowly that other people could have noticed. Or the opposite - being so fidgety or restless that you have been moving around a lot more than usual: not at all 9. Thoughts that you would be better off or of hurting yourself in some way: not at all Total score: 0 Depression Screening Interpretation: Negative Depression Screening Done: Yes Source: Developed by Drs. Kayden Vera, Vida Bonner, Darvin Kamara and colleagues, with an educational joe from [employer]. Thrive Questionnaire Date Thrive assessed: 09/09/24 I am a: Patient What is your living situation today?: I have a steady place to live Within the past 12 months, did the food you bought not last and you didn't have the money to get more?: Never true Within the past 12 months, did you worry whether your food would run out before you got money to buy more?: Never true Do you have trouble paying for medicines?: No Do you have trouble getting transportation to medical appointments?: No Do you have trouble paying your heating and electricity bill?: No Do you have trouble taking care of your child, family member or friend?: No Do you have trouble with day-to-day activities such as bathing, preparing meals, shopping, managing finances, etc.?: No Are you currently unemployed and looking for a job?: No Are you interested in more education?: No Please select the resources that you would like help with: None Currently or been in a relationship where the following occur: No concerns reported THRIVE Score: 0 AUDIT C Alcohol Use Questionnaire (AUDIT-C) 1. How often do you have a drink containing alcohol?: Monthly or less 2. How many drinks containing alcohol do you have on a typical day when you are drinking?: 1 or 2 3. How often do you have six or more drinks on one occasion?: Less than monthly Total Score: 2 AMARIS-7 AMB Questionnaire AMARIS-7 Date AMARIS - 7 assessed: 09/09/24 Feeling nervous, anxious, or on edge: 0 = Not at all Not being able to stop or control worryin = Not at all Worrying too much about different things: 0 = Not at all Trouble relaxin = Not at all Being so restless that it is hard to sit still: 0 = Not at all Becoming easily annoyed or irritable: 0 = Not at all Feeling afraid as if something awful might happen: 0 = Not at all Total AMARIS-7 score (0-4 normal; 5-9 mild; 10-14 moderate; 15-21 severe): 0 Source: Developed by Drs. Kayden Vera, Vida Bonner, Darvin Kamara and colleagues, with an educational joe from [employer]. Physical exam (Primary Care) Vital Signs: Oxygen Delivery Method Room Air 09/09/24 12:38 BMI result Body Mass Index 38.5 Tobacco/Smoking Status: Tobacco use Status Tobacco use date assessed 06/22/24 06/22/24 14:39 Patient Tobacco Use Status Never used Tobacco 06/22/24 14:39 e-Cigarette/Vaping Use Never Used 06/22/24 14:39 Depression Screening Interpretation: Negative Thrive Assessment: Date of Thrive Assessment Date Thrive assessed 06/22/24 06/22/24 14:39 Currently or been in a relationship where the following occur: No concerns reported Const General: alert; No acute distress Eyes Conjunctivae: conjunctivae normal Resp Auscultation: clear to auscultation bilaterally Cardio Rate: regular rate Rhythm: regular rhythm GI Inspection: Yes normal to inspection Extrem General: Yes normal to inspection and No edema Coding Level of Care Code Est Pt Level 3 (12909) Diagnoses Cough R05.9 Acne L70.9 Assessment & Plan Assessment & Plan (1) Cough: Code(s): R05.9 - Cough, unspecified Category: Medical (2) Acne: Code(s): L70.9 - Acne, unspecified Category: Medical Plan: advised clean face with water and heating pads. Plan History of Present Illness The patient is a 58-year-old male presenting with symptoms of an acute viral upper respiratory infection, which started one week ago with a cold and developed into a persistent cough with significant phlegm production. Despite using Mucinex and Coricidin, his symptoms escalated, with mucus discharging from his eyes and eyes crusting shut overnight. He experiences general malaise and sore throat but is unsure about fever or chills. The patient suspects a viral source due to family exposure, while also managing a chronic facial lesion treated with topical acne medication. Health Maintenance - Last blood work was completed in March 2024, showing normal blood count and electrolytes, kidney function (GFR 1.04, creatinine 101 ?mol/L), hemoglobin A1c at 5.4%, and good LDL cholesterol levels with triglycerides at 187 mg/dL. Social History - Brother recently had similar symptoms including persistent coughing and loss of voice. - The patient?s has begun experiencing coughing symptoms. Review of Systems - Constitutional: Reports feeling generally in a cloud, uncertain about fever or chills. - Eyes: Reports mucus discharge and crusting; denies previous occurrences. - Respiratory: Reports frequent coughing with phlegm and sore throat. - ENT: Reports sore throat, slightly painful upon swallowing. - Dermatological: Reports a persistent acne-like lesion on the face, variable in size. Physical Exam - Eyes- Conjunctival injection and crusting noted. - Throat- Examination reveals no notable abnormalities. - Lungs- Clear to auscultation and percussion bilaterally. - Dermatological- Acneiform lesion on the face with a palpable central core. Results - Labs: Normal blood count, normal electrolytes, GFR 1.04, creatinine 101, and hemoglobin A1c 5.4%. - Tests: Cholesterol LDL levels are satisfactory, triglycerides measured at 187 mg/dL. Plan The patient is being managed for a suspected viral upper respiratory infection. Antibiotics were prescribed preemptively for sinus coverage and patient was advised to continue Mucinex for phlegm management. Testing for influenza, RSV, and COVID-19 is planned given exposure risks at home. Instructions were provided for managing an acne-like lesion using warm compresses. Patient was informed and verbally consented to the use of an ambient scribe for clinic note documentation during this visit. Discussion Notes I discussed with the patient the likelihood of a viral upper respiratory tract infection given the symptoms and familial exposure. The option to use antibiotics for potential sinus infection was deliberated, with emphasis on their role subject to bacterial confirmation. I emphasized fluid intake and maintaining Mucinex use for symptomatic relief. Recommendations regarding testing for viral illnesses such as influenza, RSV, and COVID-19 were made for further diagnosis. For the facial lesion, I explained the benefits of warm compresses and continued topical acne management. The patient is advised to complete the outlined tests and follow up post-results evaluation. Patient Instructions - Continue Mucinex to help with phlegm. - Start antibiotics as prescribed but contact if viral testing is positive. - Drink plenty of fluids. - Use warm compresses on facial lesion twice daily. - Follow up with testing for flu, RSV, COVID-19. - Contact me if symptoms worsen or new symptoms appear. Orders: Orders SARS-CoV2/FLU/RSV Today R05.9 - Cough, unspecified Medications: New amoxicillin-pot clavulanate 875-125 mg 1 tab PO BID 14 tabs 0RF R05.9 - Cough, unspecified
--- OUTSIDE RECORDS SUMMARY | 2024-09-09 15:11 | XMS_ITS | Patient Health Record ---
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 Name Role Phone Es Cuenca MD Primary Care Provider Kayden Jose [phone] Allergies No Known Allergies Reason For Referral No Information Medications Medication SIG (Take, Route, Frequency, Duration) Notes [...] e a day for 30 day(s) Active Immunizations Vaccine Route Administration Date Status Comme nts Influenza Unknown 03/14/2021 Administered Social History Tobacco Use: Social History Observation Description Date Details (start date - stop date) Never Smoker NA - NA Tobacco Use/Smoking Question Answer Notes Patient is [...] Never (0 point) Points 1 Interpretation Negative Section Notes: Nonsmoker; no sig alcohol Problems Problem Type SNOMED Code ICD Code Onset Dates Problem Status W/U Status Risk Notes Problem [id number] Encounter for screening for malignant neoplasm of colon (Z12.11) Active confirmed Problem [id number] Preprocedural examination (Z01.818) Active confirmed Plan Of Treatment Future Test Test Name Order Date COLONOSCOPY 06/28/2021 Insurance Providers Payer Name Payer Address Payer Phone Subscriber Number Group Number Insured Name Patient Relationship to Insured Coverage Start Date Coverage End Date VERONICA [address] [place] [address] [id number] JENNYFER HAMPTON Self - patient is the insured Medical (General) History Medical History History ICD Code HTN BPH Snores Takes Sertraline for sleep Denies [place],DM,CVA,Lung disease,renal dise ase Rosacea and cold sores Surgical History Surgery Date(Month/Year) Knee meniscus repaired both knees Trigger finger Deviated septum
== END 2024-09-09 13:02 | disposition home or self-care (01) ==
LOC: HO.HMCH 12:24
PROVIDERS: PCP Internal Medicine; Visit Provider Internal Medicine
DX: R05.9 Cough, unspecified (principal); L70.9 Acne, unspecified

== ENCOUNTER 2024-10-05 14:21 | Outpatient (AMB) | payer OTHER, SELFPAY ==
--- NOTE | 2024-10-05 14:27 | A.OFFVIS_ITS ---
Vital Signs 10/05/24 14:28 Height 5 ft 7 in Weight 246 lb 14.684 oz BMI 38.7 BP 120/62 Blood Pressure Location Lt brachial Position Sitting Pulse 76 Pulse Source Monitor Intake Visit Reasons: 6 mth fu after cta Allergies No Known Allergies Allergy (Verified 09/09/24 12:39) Medication List - Last Reconciled 10/05/24 by Mynor Murray MD alprazolam 0.25 mg PO BEDTIME PRN 90 days flecainide 50 mg PO Q12H fluticasone propionate 50 mcg/actuation 2 sprays intranasal DAILY metoprolol succinate ER 75 mg (1.5 x 50 mg) PO DAILY 90 days sertraline 50 mg PO DAILY tamsulosin 0.4 mg PO DAILY@1730 90 days HPI Comments Details: Rich returns for follow-up regarding atrial fibrillation. To recall, few years ago, he came for colonoscopy and found to have atrial fibrillation with rapid rate. Then underwent cardioversion after appropriate anticoagulation. After some time, we tried to stop his flecainide but he immediately got back palpitations/atrial fibrillation. Then he was put back on flecainide. Continues to be on the same. He also has obstructive sleep apnea on sleep study and on CPAP. Overall, he states he feels quite good. No new concerns. He would like to stay on flecainide till he retires from [employer] department next year and then look at other options like ablation. [facility] Medical History (Updated 09/09/24 @ 13:00 by Es Cuenca MD) Colon cancer screening Atrial fibrillation Essential hypertension COVID-19 vaccine series completed SOB (shortness of breath) on exertion Trigger finger of all digits of left hand Anxiety COVID-19 virus infection Acute meniscal tear of left knee Insomnia BPH (benign prostatic hyperplasia) Allergic rhinitis Rosacea Obesity (BMI 30-39.9) Hypertriglyceridemia Surgical History History of facial surgery H/O vasectomy Hx of knee surgery H/O thumb surgery Family History Father Diabetes CVA (cerebral vascular accident) Mother Hypertension Brother No problems noted. Brother No problems noted. Sister No problems noted. Sister No problems noted. Daughter No problems noted. Daughter No problems noted. Social History Household Members: Spouse and Family Housing: House Alcohol intake: current Alcohol intake frequency: holidays/special occasions only Patient Tobacco Use Status: Never used Tobacco e-Cigarette/Vaping Use: Never Used Second Hand Smoke Exposure: No Advance Directives Date on File: 08/24/21 service: No Current occupational status: employed Cognitive needs: No Hearing needs: No Vision needs: No Review of Systems Const Denies weakness ENT Denies dizziness Card Denies chest pain, Denies chest pain with activity, Denies syncope, Denies rapid heart rate, Denies pedal edema, Denies edema, Denies leg edema, Denies lightheadedness, Denies palpitations, Denies dyspnea, Denies dyspnea on exertion and Denies orthopnea Resp Denies cough, Denies dyspnea and Denies dyspnea on exertion GI Denies hematochezia and Denies change in stool character Musc Denies abnormal gait, Denies muscle cramps, Denies muscle weakness, Denies n umbness, Denies radiating pain into limb and Denies tingling Neuro Denies abnormal gait, Denies dizziness, Denies syncope, Denies numbness, Denies tingling and Denies weakness Endo Denies palpitations Physical Exam Vital Signs: Last Vital Signs Pulse 76 10/05/24 14:28 BP 120/62 10/05/24 14:28 BMI result Body Mass Index 38.7 Const General: comfortable and no acute distress Orientation/consciousness: patient oriented x3 HEENT Other: Unremarkable Head: Yes normal to inspection Neck Neck: Yes normal visual inspection Chest Chest palpation & inspection: normal inspection of the chest Resp Auscultation: clear to auscultation bilaterally Cardio Palpation: normal PMI Heart sounds: S1 normal heart sound present, S2 normal heart sound present, no gallops, no murmurs and no rubs GI Palpation (GI): Soft to palpation Back/Spine/Pelvis Other: unremarkable Skin General skin exam: no rashes or lesions noted Neuro General: patient oriented x3 Extrem General: Yes normal to inspection Psych Mental Status: mental status grossly normal Office Procedures EKG Details: EKG with underlying sinus rhythm at 76/Min; nonspecific changes in the inferior leads; normal GA/[place]. [id number], Complete Assessment & Plan Assessment & Plan (1) PAF (paroxysmal atrial fibrillation): Comment: NO anticoagulation , low thromboemboliuc risk Code(s): I48.0 - Paroxysmal atrial fibrillation Category: Medical Plan: History of cardioversion. Continue flecainide/beta-blockers for the foreseeable future. Post long-term next year, he wants to stop flecainide and then maybe we can consider ablation. On previous occasions, when flecainide was stopped he developed recurrent atrial fibrillation. Not on anticoagulation due to low thromboembolic risk. Coronary CTA 2023-no evidence of atherosclerotic coronary disease. (2) Morbid obesity: Code(s): E66.01 - Morbid (severe) obesity due to excess calories Category: Medical Plan: We have discussed this many times including today. Losing weight will certainly help his atrial fibrillation recurrence rate. It will improve his c ardiovascular risk profile overall. He states that his PCP had tried several medications but they were all injected by insurance. (3) CITLALY (obstructive sleep apnea): Comment: He is a known case of obstructive sleep apnea which is being treated successfully with the use of CPAP. Lately CPAP compliance is suboptimal because of his travels. Code(s): G47.33 - Obstructive sleep apnea (adult) (pediatric) Category: Medical Plan: Continue CPAP. Plan Discussion Notes During the consultation, we extensively discussed the management of Atrial Fibrillation, including the prospective use of catheter ablation after long-term as a means of discontinuing medication dependence. The conversation delved into detailed genetic predisposition factors and the patient's family history with AFib. We explored the complexities of insurance coverage for medications aimed at weight management, a critical aspect of control and prognosis of AFib. Consent was implied for possible procedural interventions acknowledging risks and variable success rates related to weight and procedural intervention. We addressed anticipated changes in health insurance post-ret irement, encouraging a strategy prioritizing a new policy favorability towards covering necessary treatments. Patient was informed and verbally consented to the use of an ambient scribe for clinic note documentation during this visit. Patient Instructions: - Monitor for any symptoms of AFib and report them immediately. - Consider lifestyle modifications related to weight management. - Expect a review of treatment options with new insurance coverage after long-term. - Return for follow-up discussions as planned to review symptoms and potential procedural intervention options. Coding Level of Care Code Est Pt Level 4 (54471) Complex EM visit Add On G2211 Diagnoses PAF (paroxysmal atrial fibrillation) I48.0 Morbid obesity E66.01 CITLALY (obstructive sleep apnea) G47.33 CPT Codes EKG - CPT: 25398-[id number], Complete ([id number])
[2024-10-05 14:28] VITALS: BP 120/62; PULSE 76; BMI 38.7
--- OUTSIDE RECORDS SUMMARY | 2024-10-05 15:32 | XMS_ITS | Patient Health Record ---
Author Organization [facility] Address [address] [place] [address] Care Team Providers Care Medical Associate Name Role Phone Es Cuenca MD Primary Care Provider Kayden Jose [phone] Allergies No Known Allergies Reason For Referral [...] Problem Status W/U Status Risk Notes Problem [id number] Encounter for screening for malignant neoplasm of colon (Z12.11) Active confirmed Problem [id number] Preprocedural examination (Z01.818) Active confirmed Plan Of Treatment Future Test Test Name Order Date COLONOSCOPY 06/28/2021 Insurance Providers Payer Name Payer Address Payer Phone Subscriber Number Group Number Insured Name Patient Relationship to Insured Coverage Start Date Coverage End Date VERONICA [address] [place] [address] [phone] [id number] JENNYFER HAMPTON Self - patient is the insured Medical (General) History Medical History History ICD Code HTN BPH Snores Takes Sertraline for sleep Denies [place],DM,CVA,Lung disease,renal dise ase Rosacea and cold sores Surgical History Surgery Date(Month/Year) Knee meniscus repaired both knees Trigger finger Deviated septum
== END 2024-10-05 14:50 | disposition home or self-care (01) ==
LOC: HO.HCS 14:22
PROVIDERS: PCP Internal Medicine; Visit Provider Internal Medicine
DX: I48.0 Paroxysmal atrial fibrillation (principal); E66.01 Morbid (severe) obesity due to excess calories; G47.33 Obstructive sleep apnea (adult) (pediatric)
CPT/HCPCS: 93010; 99214

== ENCOUNTER → 2024-10-05 14:21 | Outpatient (BNVA) | payer OTHER, SELFPAY | PROVIDERS: PCP Internal Medicine; Visit Provider Internal Medicine | DX: I48.0 Paroxysmal atrial fibrillation (principal); E66.01 Morbid (severe) obesity due to excess calories; Z68.38 Body mass index [BMI] 38.0-38.9, adult; G47.33 Obstructive sleep apnea (adult) (pediatric); Z99.89 Dependence on other enabling machines and devices | CPT/HCPCS: 93005 ==

== ENCOUNTER 2025-03-29 14:16 | Outpatient (AMB) | payer OTHER, SELFPAY ==
--- NOTE | 2025-03-29 14:31 | A.OFFPC_ITS ---
Vital Signs 03/29/25 14:32 Height 5 ft 7 in Weight 254 lb 8 oz BMI 39.9 BP 120/84 Blood Pressure Location Lt brachial Position Sitting Pulse 101 H Pulse Source Pulse Oximeter Temp 97.3 F Temp Source Temporal Artery Scan Pulse Oximetry (%) 96 Oxygen Delivery Method Room Air Intake Visit Reasons: Reschedule 3 month FU Allergies No Known Allergies Allergy (Verified 03/29/25 14:35) Medication List - Last Reconciled 03/29/25 by Es Cuenca MD alprazolam 0.25 mg PO BEDTIME PRN 90 days flecainide 50 mg PO Q12H fluticasone propionate 50 mcg/actuation 2 sprays intranasal DAILY metoprolol succinate ER 75 mg (1.5 x 50 mg) PO DAILY 90 days sertraline 50 mg PO DAILY tamsulosin 0.4 mg PO DAILY@1730 90 days Tobacco use date assessed: 03/29/25 Dental Screening Dental Screen Date: 03/29/25 Did you have a dental visit in the last 12 months?: Yes Did you have a dental problem in the last 6 months where you did not have access to dental care?: No Was dental information given to patient?: Patient has dentist [facility] Medical History Colon cancer screening Atrial fibrillation Essential hypertension COVID-19 vaccine series completed SOB (shortness of breath) on exertion Trigger finger of all digits of left hand Anxiety COVID-19 virus infection Acute meniscal tear of left knee Insomnia BPH (benign prostatic hyperplasia) Allergic rhinitis Rosacea Obesity (BMI 30-39.9) Hypertriglyceridemia Surgical History History of facial surgery H/O vasectomy Hx of knee surgery H/O thumb surgery Family History Father Diabetes CVA (cerebral vascular accident) Mother Hypertension Brother No problems noted. Brother No problems noted. Sister No problems noted. Sister No problems noted. Daughter No problems noted. Daughter No problems noted. Social History Household Members: Spouse and Family Housing: House Alcohol intake: current Alcohol intake frequency: holidays/special occasions only Patient Tobacco Use Status: Never used Tobacco e-Cigarette/Vaping Use: Never Used Second Hand Smoke Exposure: No Advance Directives Date on File: 08/24/21 service: No Current occupational status: employed Cognitive needs: No Hearing needs: No Vision needs: No Questionnaire PHQ-9 Over the last 2 weeks, how often have you been bothered by any of the following problems? 1. Little interest or pleasure in doing things: not at all 2. Feeling down, depressed, or hopeless: not at all 3. Trouble falling or staying asleep, or sleeping too much: not at all 4. Feeling tired or having little energy: not at all 5. Poor appetite or overeating: not at all 6. Feeling bad about yourself - or that you are a failure or have let yourself or your family down: not at all 7. Trouble concentrating on things, such as reading the newspaper or watching television: not at all 8. Moving or speaking so slowly that other people could have noticed. Or the opposite - being so fidgety or restless that you have been moving around a lot more than usual: not at all 9. Thoughts that you would be better off or of hurting yourself in some way: not at all Total score: 0 Source: Developed by Drs. Kayden Vera, Vida Bonner, Darvin Kamara and colleagues, with an educational joe from [employer]. Thrive Questionnaire Date Thrive assessed: 03/27/25 I am a: Patient What is your living situation today?: I have a steady place to live Within the past 12 months, did the food you bought not last and you didn't have the money to get more?: Never true Within the past 12 months, did you worry whether your food would run out before you got money to buy more?: Never true Do you have trouble paying for medicines?: No Do you have trouble getting transportation to medical appointments?: No Do you have trouble paying your heating and electricity bill?: No Do you have trouble taking care of your child, family member or friend?: No Do you have trouble with day-to-day activities such as bathing, preparing meals, shopping, managing finances, etc.?: No Are you currently unemployed and looking for a job?: No Are you interested in more education?: No Please select the resources that you would like help with: None Currently or been in a relationship where the following occur: No concerns reported THRIVE Score: 0 AUDIT C Alcohol Use Questionnaire (AUDIT-C) 1. How often do you have a drink containing alcohol?: Monthly or less 2. How many drinks containing alcohol do you have on a typical day when you are drinking?: 1 or 2 3. How often do you have six or more drinks on one occasion?: Less than monthly Total Score: 2 AMARIS-7 AMB Questionnaire AMARIS-7 Date AMARIS - 7 assessed: 09/09/24 Feeling nervous, anxious, or on edge: 0 = Not at all Not being able to stop or control worryin = Not at all Worrying too much about different things: 0 = Not at all Trouble relaxin = Not at all Being so restless that it is hard to sit still: 0 = Not at all Becoming easily annoyed or irritable: 0 = Not at all Feeling afraid as if something awful might happen: 0 = Not at all Total AMARIS-7 score (0-4 normal; 5-9 mild; 10-14 moderate; 15-21 severe): 0 Source: Developed by Drs. Kayden Vera, Vida Bonner, Darvin Kamara and colleagues, with an educational joe from [employer]. Physical exam (Primary Care) Vital Signs: Last Vital Signs Temp 97.3 F 03/29/25 14:32 Pulse 101 H 03/29/25 14:32 BP 120/84 03/29/25 14:32 Pulse Ox 96 03/29/25 14:32 Oxygen Delivery Method Room Air 03/29/25 14:32 BMI result Body Mass Index 39.9 Tobacco/Smoking Status: Tobacco use Status Tobacco use date assessed 03/29/25 03/29/25 14:36 Patient Tobacco Use Status Never used Tobacco 03/29/25 14:36 e-Cigarette/Vaping Use Never Used 03/29/25 14:36 PHQ-9: PHQ-9 Score PHQ-9: Total score 0 03/29/25 15:15 Thrive Assessment: Date of Thrive Assessment Date Thrive assessed 03/27/25 03/29/25 14:36 Currently or been in a relationship where the following occur: No concerns reported Const General: alert; No acute distress Eyes Conjunctivae: conjunctivae normal Resp Auscultation: clear to auscultation bilaterally Cardio Rate: regular rate Rhythm: regular rhythm GI Inspection: Yes normal to inspection Extrem General: Yes normal to inspection and No edema Office Procedures Flu Questionnaire Does the patient have a severe egg allergy?: No Does the patient have severe life threatening allergies?: No Does the patient have a fever or illness today?: No Has the patient ever had Guillain-[place]wood Syndrome?: No Has the patient ever had any past reaction to a flu shot?: No Immunizations Fluarix (PF) 45 mcg (15 mcg x 3)/0.5 mL IM syringe Performing Provider: Es Cuenca MD Performing Location: [facility] Administered by: Annalise Dominguez CMA on 03/29/25 15:15 Dose Route Admin Location Dispensed Lot Number Expiration Date NDC Hoop Rolls Operator 0.5 mL IM Left Deltoid 0.5 mL [id number] 11/22/25 37061-783-65 [employer] VIS Given Date VIS Provided VIS Publication Date 03/29/25 Single Vaccine 24 Eligibility Eligibility Date Funding Source Not VFC Eligible 03/29/25 Private Tenivac (PF) 5 Lf unit-2 Lf unit/0.5 mL intramuscular syringe Performing Provider: Es Cuenca MD Performing Location: [facility] Administered by: Annalise Dominguez CMA on 03/29/25 15:15 Dose Route Admin Location Dispensed Lot Number Expiration Date NDC Hoop [employer]s Operator 0.5 mL IM Right Deltoid 0.5 mL [id number] 08/24/26 51930-617-49 [employer] Total Dispensed Waste 0.5 mL 0 % VIS Given Date VIS Provided VIS Publication Date 03/29/25 Single Vaccine 20 Eligibility Eligibility Date Funding Source Not VFC Eligible 03/29/25 Private Coding Level of Care Code Est Pt Level 4 (08712) Complex EM visit Add On G2211 Diagnoses Essential hypertension I10 Hypertension type: essential hypertension PAF (paroxysmal atrial fibrillation) I48.0 Hypertriglyceridemia E78.1 Impaired glucose tolerance R73.02 TSH elevation R79.89 Obesity (BMI 30-39.9) E66.9 Benign prostatic hyperplasia with urinary frequency N40.1; R35.0 Lower urinary tract symptom detail: urinary frequency Lower urinary tract symptom presence: symptoms present CITLALY (obstructive sleep apnea) G47.33 Generalized anxiety disorder F41.1 Assessment & Plan Assessment & Plan (1) Hypertension: Code(s): I10 - Essential (primary) hypertension Category: Medical Qualifiers: Hypertension type: essential hypertension Qualified Code(s): I10 - Essential (primary) hypertension Plan: Continue with blood pressure medication. Decrease salt intake and exercise on metoprolol 75 mg once a day (2) PAF (paroxysmal atrial fibrillation): Comment: NO anticoagulation , low thromboemboliuc risk Code(s): I48.0 - Paroxysmal atrial fibrillation Category: Medical Plan: Continue with flecainide follows up with Cardiology will think about ablation after care home (3) Hypertriglyceridemia: Code(s): E78.1 - Pure hyperglyceridemia Category: Medical Plan: Avoid fried foods, chicken skin, eggs, butter margarine, pastries and meat. Be it pork or beef they have a lot of cholesterol LDL goal of less than 130 and triglyceride of less than 150 (4) Impaired glucose tolerance: Code(s): R73.02 - Impaired glucose tolerance (oral) Category: Medical Plan: Decrease the amount of carbohydrate intake, pasta, bread, rice and potatoes are all sugar and that is aside from all the sweet stuff, remember that fruits are good but they are Sweet also. (5) TSH elevation: Code(s): R79.89 - Other specified abnormal findings of blood chemistry Category: Medical Plan: Patient was advised repeat blood work (6) Obesity (BMI 30-39.9): Comment: Remains grossly obese but starting to lose weight with the use of Mounjaro Code(s): E66.9 - Obesity, unspecified Category: Medical Plan: Diet and exercise (7) BPH (benign prostatic hyperplasia): Code(s): N40.0 - Benign prostatic hyperplasia without lower urinary tract symptoms Category: Medical Qualifiers: Lower urinary tract symptom detail: urinary frequency Lower urinary tract symptom presence: symptoms present Qualified Code(s): N40.1 - Benign prostatic hyperplasia with lower urinary tract symptoms; R35.0 - Frequency of micturition Plan: Tamsulosin continue (8) CITLALY (obstructive sleep apnea): Comment: He is a known case of obstructive sleep apnea which is being treated successfully with the use of CPAP. Lately CPAP compliance is suboptimal because of his travels. Code(s): G47.33 - Obstructive sleep apnea (adult) (pediatric) Category: Medical Plan: Continue to use the CPAP more than 4 hours a night and benefits from this. (9) Generalized anxiety disorder: Code(s): F41.1 - Generalized anxiety disorder Category: Medical Plan: Continue with alprazolam as needed Plan History of Present Illness The patient is a 59-year-old obese male presenting for a follow-up visit for management of multiple chronic conditions. His history includes hypercholesterolemia, generalized anxiety disorder, impaired glucose tolerance, hypertension, obstructive sleep apnea, and benign prostatic hyperplasia. The patient has a history of atrial fibrillation, for which he saw cardiology in September. He is currently managed with flecainide and a beta-shaheen. The plan is to continue flecainide until he retires in September, at which point cardiology will attempt to wean him off the medication, with consideration for an ablation if symptoms recur. He reports he has only experienced two episodes of atrial fibrillation since he became aware of the symptoms. For weight management, the patient was previously using a compounded semaglutide, which is no longer available. He has lost weight with this medication and is now seeking a prescription for Zepbound via [facility]. His last blood work in March of the previous year showed a mildly elevated sugar level with a normal hemoglobin A1c and elevated triglycerides at 187 mg/dL. The patient notes new intermittent, severe pain in his hand, particularly when opening it wide, that has been occurring for the last year. He also reports a recurrence of plantar fasciitis in both feet. He has a known history of bilateral carpal tunnel syndrome and has previously received a right knee injection from an seo marketing specialist. His last colon cancer screening with [facility] was in December 2022. Additionally, he experienced an episode of gastroenteritis with vomiting approximately three weeks ago. Health Maintenance The patient will receive an influenza vaccine and a tetanus vaccine today, as his last tetanus was in 2014. An order for fasting blood work has been placed for May. Continue tamsulosin for BPH and CPAP for obstructive sleep apnea. A follow-up appointment is scheduled in three months. 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 - Half-Way: He plans to retire in September. Review of Systems - Respiratory: Reports a history of cough. - Gastrointestinal: Reports a resolved stomach bug with vomiting that occurred about 3 weeks ago. - Musculoskeletal: Reports intermittent, severe pain in the hand when opening it wide, which has been present for the last year. - He also reports recurrent bilateral foot pain consistent with plantar fasciitis. - Neurological: Acknowledges a known diagnosis of bilateral carpal tunnel syndrome but reports the current hand symptom is pain, not numbness. - Psychiatric: Reports generalized anxiety, which is well-managed on sertraline. - He has occasional anxiety causing insomnia, for which he uses alprazolam infrequently. Physical Exam Results - Labs (March 2023): - Blood count: Normal - Electrolytes: Normal - Renal function: Creatinine 1.04. - Glucose: Mildly elevated. - Hemoglobin A1c: Normal. - Liver function: Normal. - Triglycerides: 187 mg/dL. - Thyroid: Mildly elevated. - Screening: - oguahernandez (December 2022): Completed. - Other: - EKG: Performed at a previous visit. Plan Patient was informed and verbally consented to the use of an ambient scribe for clinic note documentation during this visit. 1. Obesity The patient previously used compounded semaglutide but is transitioning to Zepbound (tirzepatide) for weight loss, which he obtains through [facility]. He has been titrating his dose and reports no nausea. A prescription for Zepbound 15 mg weekly injections with 3 refills will be sent to [facility] pharmacy to ensure continuous access at a lower cost. The patient was advised that the goal is to reach a weight below 200 lbs and to reduce the dose if he experiences vomiting. 2. Atrial Fibrillation Continue current management with flecainide and metoprolol 75 mg once a day. The patient will continue to follow up with cardiology. The plan established with his watchmaking teacher is to attempt weaning off flecainide after his care home, with consideration for a cardiac ablation if atrial fibrillation recurs. 3. Generalized Anxiety Disorder The patient's anxiety is well-controlled with sertraline. A prescription for alprazolam will be refilled for as-needed use, which the patient reports using infrequently for anxiety-related insomnia. 4. Hyperlipidemia The treatment goals are an LDL less than 130 mg/dL and triglycerides less than 150 mg/dL. His last triglyceride level was elevated at 187 mg/dL. He was advised to focus on diet and exercise, and labs will be repeated in May. 5. Bilateral Plantar Fasciitis The patient reports a recurrence of pain in both feet consistent with plantar fasciitis. He was instructed on home exercises, including rolling his foot over a warm water bottle and performing towel curls with his toes to alleviate symptoms. 6. Hand Pain The patient described new, severe, intermittent pain in his hand, which is likely tendinopathic in nature, possibly related to trigger finger, rather than his known carpal tunnel syndrome, as the primary symptom is pain, not numbness. Discussion Notes I discussed the patient's ongoing management for multiple chronic conditions. We reviewed the plan for his atrial fibrillation, which is to continue flecainide until care home and then follow up with cardiology for a possible medication wean and consideration of an ablation if necessary. Regarding weight management, I agreed to prescribe Zepbound 15 mg weekly injections to be filled via [facility]. I counseled him to monitor for side effects like nausea and vomiting and discussed a goal weight of under 200 lbs. I refilled his as-needed alprazolam prescription. For his new musculoskeletal complaints, I explained that his hand pain is more likely related to tendon inflammation than his carpal tunnel syndrome. I also instructed him on home exercises for his recurrent plantar fasciitis. We discussed preventative care, and he agreed to receive the influenza and tetanus vaccines today. I placed an order for follow-up fasting labs in May and recommended he sign up for the patient portal for easier communication. We will follow up in three months. Patient Instructions - Continue taking your current medications, including metoprolol, tamsulosin, and flecainide, as prescribed. - A prescription for Zepbound 15 mg has been sent to the [facility] mail-order pharmacy. - Inject this medication once weekly for weight loss. - Your weight loss goal is to get under 200 pounds. - A refill for alprazolam has been sent to your pharmacy for as-needed use for anxiety. - For your foot pain, you can perform home exercises, such as rolling your foot over a warm water bottle or using your toes to bunch up a towel on the floor. - You will receive your flu shot and tetanus shot in the office today. - An order has been placed for you to get fasting blood work done in May. - Continue using your CPAP machine for more than 4 hours each night. - Please follow up in the office in three months. - You are encouraged to sign up for the patient portal to make it easier to request refills and communicate with the office. Orders: Orders Influenza [id number] Immunization Today Z23 - Encounter for immunization Td Immunization Today Z23 - Encounter for immunization Medications: New tirzepatide (weight loss) (Zepbound) 15 mg (0.5 mL) subcut QWEEK 2 mL 3RF E66.01 - Morbid (severe) obesity due to excess calories Refilled alprazolam 0.25 mg PO BEDTIME 90 days PRN 10 tabs 0RF sleep F41.9 - Anxiety d isorder, unspecified alprazolam 0.25 mg PO BEDTIME PRN 10 tabs 0RF sleep 90 days F41.9 - Anxiety disorder, unspecified
[2025-03-29 14:32] VITALS: BP 120/84; PULSE 101; TEMP 36.3; O2SAT 96; BMI 39.9
--- OUTSIDE RECORDS SUMMARY | 2025-03-29 17:17 | XMS_ITS | Patient Health Record ---
Author Organization [facility] Address [address] [place] [address] Care Team Providers Care Crib Pad Maker Name Role Phone Es Cuenca MD Primary Care Provider Kayden Jose [phone] Allergies No Known Allergies Reason For Referral No Information Medications Medication SIG (Take, Route, Frequency, Duration) Notes Start Date End Date Status Tamsulosin HCl 0.4 MG 1 capsule Orally O nce a day; Duration: 30 day(s) Active Metoprolol Succinate ER 50 MG Oral; Duration: 90 Active Doxycycline Hyclate 20 MG Oral; Duration: 90 Active Valtrex 500 MG 1 tablet Orally Once a day; Duration: 10 day(s) Active Sertraline HCl 25 MG 1 tablet Orally Onc e a day; Duration: 30 day(s) Active Immunizations Vaccine Route Administration [...] Problem Status W/U Status Risk Notes Problem Screening for malignant neoplasm of colon ([id number]) Encounter for screening for malignant neoplasm of colon (Z12.11) Active confirmed Problem Preprocedural examination ([id number]) Preprocedural examination (Z01.818) Active confirmed Plan Of Treatment Future Test Test Name Order Date COLONOSCOPY 06/28/2021 Insurance Providers Payer Name Payer Address Payer Phone Subscriber Number Group Number Insured Name Patient Relationship to Insured Coverage Start Date Coverage End Date [employer] [address] [place] [address] [id number] JENNYFER HAMPTON Self - patient is the insured Medical (General) History Medical History History ICD Code HTN BPH Snores Takes Sertraline for sleep Denies NV,DM,CVA,Lung disease,renal dise ase Rosacea and cold sores Surgical History Surgery Date(Month/Year) Knee meniscus repaired both knees Trigger finger Deviated septum
== END 2025-03-29 15:32 | disposition home or self-care (01) ==
LOC: HO.HMCH 14:17
PROVIDERS: PCP Internal Medicine; Visit Provider Internal Medicine
DX: I10 Essential (primary) hypertension (principal); I48.0 Paroxysmal atrial fibrillation; Z68.39 Body mass index [BMI] 39.0-39.9, adult; E66.9 Obesity, unspecified; E78.1 Pure hyperglyceridemia; R73.02 Impaired glucose tolerance (oral); R79.89 Other specified abnormal findings of blood chemistry; N40.1 Benign prostatic hyperplasia with lower urinary tract symptoms; R35.0 Frequency of micturition; G47.33 Obstructive sleep apnea (adult) (pediatric); F41.1 Generalized anxiety disorder; Z23 Encounter for immunization

== ENCOUNTER → 2025-03-29 14:16 | Outpatient (BNVA) | payer OTHER, SELFPAY | PROVIDERS: PCP Internal Medicine; Visit Provider Internal Medicine | DX: Z23 Encounter for immunization (principal); I10 Essential (primary) hypertension; I48.0 Paroxysmal atrial fibrillation; E78.1 Pure hyperglyceridemia; R73.02 Impaired glucose tolerance (oral); R79.89 Other specified abnormal findings of blood chemistry; E66.9 Obesity, unspecified; N40.1 Benign prostatic hyperplasia with lower urinary tract symptoms; R35.0 Frequency of micturition; G47.33 Obstructive sleep apnea (adult) (pediatric); F41.1 Generalized anxiety disorder; E78.5 Hyperlipidemia, unspecified; M72.2 Plantar fascial fibromatosis | CPT/HCPCS: 90471; 90472; 90656; 90714; 96127 ==

== ENCOUNTER 2025-04-18 08:34 | Outpatient (AMB) | payer OTHER, SELFPAY ==
--- NOTE | 2025-04-18 08:47 | A.OFFVIS_ITS ---
Vital Signs 04/18/25 08:48 Height 5 ft 7 in Weight 251 lb 5.231 oz BMI 39.4 BP 124/68 Blood Pressure Location Lt brachial Position Sitting Pulse 74 Pulse Source Monitor Intake Visit Reasons: 6 mth f/up Allergies No Known Allergies Allergy (Verified 03/29/25 14:35) Medication List - Last Reconciled 04/18/25 by Mynor Murray MD alprazolam 0.25 mg PO BEDTIME PRN 90 days flecainide 50 mg PO Q12H fluticasone propionate 50 mcg/actuation 2 sprays intranasal DAILY metoprolol succinate ER 75 mg (1.5 x 50 mg) PO DAILY 90 days sertraline 50 mg PO DAILY tamsulosin 0.4 mg PO DAILY@1730 90 days tirzepatide (weight loss) (Zepbound) 15 mg (0.5 mL) subcut QWEEK HPI Comments Details: Rich returns for follow-up regarding atrial fibrillation. To recall, few years ago, he came for colonoscopy and found to have atrial fibrillation with rapid rate. Then underwent cardioversion after appropriate anticoagulation. After some time, we tried to stop his flecainide but he immediately got back palpitations/atrial fibrillation. Then he was put back on flecainide. Continues to be on the same. He also has obstructive sleep apnea on sleep study and on CPAP. Overall, he states he feels quite good. No new concerns. 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 He has just started Zepbound for losing weight. [facility] Medical History Colon cancer screening Atrial fibrillation Essential hypertension COVID-19 vaccine series completed SOB (shortness of breath) on exertion Trigger finger of all digits of left hand Anxiety COVID-19 virus infection Acute meniscal tear of left knee Insomnia BPH (benign prostatic hyperplasia) Allergic rhinitis Rosacea Obesity (BMI 30-39.9) Hypertriglyceridemia Surgical History History of facial surgery H/O vasectomy Hx of knee surgery H/O thumb surgery Family History Father Diabetes CVA (cerebral vascular accident) Mother Hypertension Brother No problems noted. Brother No problems noted. Sister No problems noted. Sister No problems noted. Daughter No problems noted. Daughter No problems noted. Social History Household Members: Spouse and Family Housing: House Alcohol intake: current Alcohol intake frequency: holidays/special occasions only Patient Tobacco Use Status: Never used Tobacco e-Cigarette/Vaping Use: Never Used Second Hand Smoke Exposure: No Advance Directives Date on File: 08/24/21 service: No Current occupational status: employed Cognitive needs: No Hearing needs: No Vision needs: No Review of Systems Const Denies weakness ENT Denies dizziness Card Denies chest pain, Denies chest pain with activity, Denies syncope, Denies rapid heart rate, Denies pedal edema, Denies edema, Denies leg edema, Denies lightheadedness, Denies palpitations, Denies dyspnea, Denies dyspnea on exertion and Denies orthopnea Resp Denies cough, Denies dyspnea and Denies dyspnea on exertion GI Denies hematochezia and Denies change in stool character Musc Denies abnormal gait, Denies muscle cramps, Denies muscle weakness, Denies numbness, Denies radiating pain into limb and Denies tingling Neuro Denies abnormal gait, Denies dizziness, Denies syncope, Denies numbness, Denies tingling and Denies weakness Endo Denies palpitations Physical Exam Vital Signs: Last Vital Signs Pulse 74 04/18/25 08:48 BP 124/68 04/18/25 08:48 BMI result Body Mass Index 39.4 Const General: comfortable and no acute distress Orientation/consciousness: patient oriented x3 HEENT Other: Unremarkable Head: Yes normal to inspection Neck Neck: Yes normal visual inspection Chest Chest palpation & inspection: normal inspection of the chest Resp Auscultation: clear to auscultation bilaterally Cardio Palpation: normal PMI Heart sounds: S1 normal heart sound present, S2 normal heart sound present, no gallops, no murmurs and no rubs GI Palpation (GI): Soft to palpation Back/Spine/Pelvis Other: unremarkable Skin General skin exam: no rashes or lesions noted Neuro General: patient oriented x3 Extrem General: Yes normal to inspection Psych Mental Status: mental status grossly normal Office Procedures EKG Details: EKG with underlying sinus rhythm at 74/Min; no ischemic changes; top normal ID; [place] [id number], Complete Assessment & Plan Assessment & Plan (1) PAF (paroxysmal atrial fibrillation): Comment: NO anticoagulation , low thromboemboliuc risk Code(s): I48.0 - Paroxysmal atrial fibrillation Category: Medical Plan: History of cardioversion. Continue flecainide/beta-blockers for the foreseeable future. 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 Hence may continue the same. Not on anticoagulation due to low thromboembolic risk. Coronary CTA 2023-no evidence of atherosclerotic coronary disease. (2) Morbid obesity: Code(s): E66.01 - Morbid (severe) obesity due to excess calories Category: Medical Plan: Recently started Zepbound through PCP. If he indeed lose a lot of weight, should bring down the risk of recurring atrial fibrillation. In that case, may possibly consider stopping flecainide in the future. (3) CITLALY (obstructive sleep apnea): Code(s): G47.33 - Obstructive sleep apnea (adult) (pediatric) Category: Medical Plan: Continue CPAP. Plan Discussion Notes I reviewed the patient's EKG, which was normal. We discussed the patient's new weight loss medication, Zepbound, and the potential benefit of significant weight loss in reducing the burden of atrial fibrillation. I outlined a long- term plan to re-evaluate after six months, once the patient has retired and has had time to lose weight. This plan includes a possible trial off flecainide, and if atrial fibrillation returns, proceeding with a cardiac ablation. The patient agreed to this approach and we will maintain the current regimen until the next visit. I also advised the patient to avoid stimulants and high-caffeine sports drinks, as they are proarrhythmic and could trigger an episode of atrial fibrillation. Follow-up is scheduled for October. Patient was informed and verbally consented to the use of an ambient scribe for clinic note documentation during this visit. Patient Instructions: - Continue taking your flecainide medication as prescribed for your heart rhythm. - Continue with your new weight loss medication, Zepbound, as directed by . - Continue using your sleep mask every night for sleep apnea. - Do not drink sports drinks like Celsius or other beverages that contain high amounts of caffeine or other stimulants. These can trigger your heart condition. - We will keep your treatment plan the same until after you retire. - Please schedule a follow-up appointment for October to review your progress. Coding Level of Care Code Complex visit Add On G2211 Diagnoses PAF (paroxysmal atrial fibrillation) I48.0 Morbid obesity E66.01 CITLALY (obstructive sleep apnea) G47.33 CPT Codes EKG - CPT: 32377-[id number], Complete ([id number])
[2025-04-18 08:48] VITALS: BP 124/68; PULSE 74; BMI 39.4
--- OUTSIDE RECORDS SUMMARY | 2025-04-18 08:52 | XMS_ITS | Patient Health Record ---
Author Organization [facility] Address [address] [place] [address] Care Team Providers Care Strategies Analyst Name Role Phone Es Cuenca MD Primary Care Provider Kayden Jose [phone] Allergies No Known Allergies Reason For Referral No Information Medications Medication SIG (Take, Route, Frequency, Duration) Notes Start Date End Date Status Tamsulosin HCl 0.4 MG Capsule 1 capsule Orally Once a day; Duration: 30 day(s) Active Metoprolol Succinate ER 50 MG Tablet Extended Release 24 Hour Oral; Duration: 90 Active Doxycycline Hyclate 20 MG Tablet Oral; Duration: 90 Active Valtrex 500 MG Tablet 1 tablet Orally On ce a day; Duration: 10 day(s) Active Sertraline HCl 25 MG Tablet 1 tablet Ora lly Once a day; Duration: 30 day(s) Active Immunizations Vaccine Route Administration Date Status Comme nts Influenza Unknown 03/14/2021 Administered Social History Tobacco Use: Social History Observation Description Date Details (start date - stop date) Never Smoker NA - NA Social History Drugs/Alcohol: Social Info Question Answer Notes Alcohol Screen Did you have a drink containing alcohol in the past year? Yes How often did you have a drink containing alcohol in the past year? Monthly or less (1 point) How many drinks did you have on a typical day when you were drinking in the past year? 1 or 2 drinks (0 point) How often did you have 6 or more drinks on one occasion in the past year? Never (0 point) Points 1 Interpretation Negative Tobacco Use: Social Info Question Answer Notes Tobacco Use/Smoking Patient is a nonsmoker Additional Details Category Social Info Options Details Miscellaneous: Marital status: Occupation: [employer] Section Notes: Nonsmoker; no sig alcohol Problems Problem Type SNOMED Code ICD Code Onset Dates Problem Status W/U Status Risk Notes Problem Screening for malignant neoplasm of colon (552740856) Encounter for screening for malignant neoplasm of colon (Z12.11) Active confirmed Problem Preprocedural examination (604051633666489) Preprocedural examination (Z01.818) Active confirmed Plan Of Treatment Future Test Test Name Order Date COLONOSCOPY 06/28/2021 Insurance Providers Payer Name Payer Address Payer Phone Subscriber Number Group Number Insured Name Patient Relationship to Insured Coverage Start Date Coverage End Date [employer] [address] [place] [address] [id number] JENNYFER HAMPTON Self - patient is the insured Medical (General) History Medical History History ICD Code HTN BPH Snores Takes Sertraline for sleep Denies TX,DM,CVA,Lung disease,renal dise ase Rosacea and cold sores Surgical History Surgery Date(Month/Year) Knee meniscus repaired both knees Trigger finger Deviated septum
== END 2025-04-18 09:05 | disposition home or self-care (01) ==
LOC: HO.HCS 08:35
PROVIDERS: PCP Internal Medicine; Visit Provider Internal Medicine
DX: I48.0 Paroxysmal atrial fibrillation (principal); E66.01 Morbid (severe) obesity due to excess calories; G47.33 Obstructive sleep apnea (adult) (pediatric)
CPT/HCPCS: 93010

== ENCOUNTER → 2025-04-18 08:34 | Outpatient (BNVA) | payer OTHER, SELFPAY | PROVIDERS: PCP Internal Medicine; Visit Provider Internal Medicine | DX: I48.0 Paroxysmal atrial fibrillation (principal) | CPT/HCPCS: 93005 ==